=== PATIENT | female | born 1990 | race Caucasian/White ===

== ENCOUNTER → 2020-02-16 | Outpatient (CLI) | payer OTHER, SELFPAY ==
[2020-02-16 09:27] VITALS: BMI 31.0
[2020-02-16 09:56] LABS: Absolute Lymphocyte Count 1.66 X10^3/uL (0.83-4.51); Absolute Neutrophil Count 8.5 X10^3/uL (2.0-7.7); Basophil# 0.03 X10^3/uL; Basophil% 0.3 % (0-1); Eosinophil# 0.13 X10^3/uL; Eosinophils% 1.2 % (0-5); Hematocrit 32.9 % (37-47); Hemoglobin 10.9 g/dL (12.0-15.0); Lymphocyte # 1.66 X10^3/ul (4.0); Lymphocyte % 14.8 % (19-41); Mean Corp Hgb Conc 33.1 g/dL (32-36); Mean Corpuscular Volume 90.6 fL (81-99); Mean Platelet Vol. 9.8 fl (6.2-12.0); Monocyte# 0.78 X10^3/uL; Monocyte% 6.9 % (0-10); NRBC Flagged by Analyzer 0 % (0-5); Neutrophil # 8.51 X10^3/uL (2.7-7.7); Neutrophil % 75.7 % (47-70); Platelet Count 267 K/mm3 (150-450); RBC Distribution Width CV 12.6 % (11.6-14.6); RBC Distribution Width SD 41.2 fl (35.1-43.9); Red Blood Count 3.63 M/mm3 (4.2-5.4); White Blood Count 11.2 K/mm3 (4.4-11.0)
[2020-02-16 11:12] LABS: HIV - WCH Non-Reactive (Nonreactive); Hepatitis B Surface Antigen Non-Reactive (Nonreactive); Hepatitis C Antibody Non-Reactive (Nonreactive); Rubella IgG 0.8 IU/mL
[2020-02-22 01:34] LABS: Rapid Plasmin Reagin (RPR) NONREACTIVE (NONREACTIVE)
== END | disposition home or self-care (01) ==
LOC: PAVLAB 09:35
PROVIDERS: Referring Provider Obstetrics & Gynecology; Visit Provider Obstetrics & Gynecology
DX: Z34.90 Encounter for supervision of normal pregnancy, unspecified, unspecified trimester (principal)
CPT/HCPCS: 36415; 85025; 86592; 86703; 86762; 86803; 86850; 86900; 86901; 87340

== ENCOUNTER → 2020-02-23 | Outpatient (CLI) | payer OTHER, SELFPAY ==
[2020-02-16 09:27] VITALS: BMI 31.0
[2020-02-23 11:39] VITALS: BMI 31.0
--- NOTE | 2020-02-23 12:17 | US_ITS ---
STUDY: SECOND AND THIRD TRIMESTER OBSTETRICAL ULTRASOUND REASON FOR EXAM: Female, 29 years old. Anatomy. 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 LMP: 06/18/2019. TECHNIQUE: Transabdominal TECHNICAL QUALITY: Adequate. PRIOR ULTRASOUND: None. FINDINGS: There is a single intrauterine fetus. The fetus is in a cephalic presentation. There is demonstrated cardiac activity with a heart rate of 1:30 bpm. There is a normal amniotic fluid volume. The largest amniotic fluid pocket measures 3.93 cm. The amniotic fluid index (BLANE) is 12.2 cm. The placenta is fundal in location. There are Grade 2 placental changes. The cervix measures 5 cm in length. The bilateral adnexal regions are normal. BIOMETRY: BPD: 8.64 cm: 34 weeks, 5 days HC: 30.77 cm: 34 weeks, 2 days AC: 31.74 cm: 35 weeks, 4 days FL: 7.01 cm: 35 weeks, 6 days CI: 82.25 FL/BPD: 81.15 FL/HC: 22.78 FL/AC: 22.09 HC/AC: 0.97 age by current US: 34 weeks, 4 days. NIKOS by current US: 04/01/2020. Estimated weight: 2697 grams, +/- 399 grams, 44 %. Age by LMP: 35 weeks, 5 days. NIKOS by LMP: 03/24/2020.. ANATOMY: Gender: Indeterminant Cranium: The lateral ventricles are non-visualized. Normal choroid plexus. Normal cerebellum. The cisterna magna is non-visualized. The face, nose and lips are suboptimally visualized.. Chest: Normal 4-chamber heart. Abdomen/Pelvis: Normal diaphragm. Normal stomach. Normal abdominal wall. Normal cord insertion. Normal 3 vessel cord. Normal kidneys. Normal bladder. Spine: Normal cervical spine. Normal thoracic spine. Normal lumbar spine. Normal sacrum. Extremities: Normal bilateral upper extremities. Normal bilateral lower extremities. US/OB Anatomy Scan IMPRESSION: 1. Live single intrauterine at 34 weeks, 4 days. NIKOS is 04/01/2020. 2. EFW of 2696 g. 3. BLANE of 12.4 cm. 4. Fundal grade 2 placenta. 5. Vertex presentation. 6. Limited evaluation of anatomy as above. No abnormality is noted. Electronically Signed: Jeremias Keith DO at 15:49 EDT Tel [phone], Service support ,
== END | disposition home or self-care (01) ==
LOC: OPUS 12:17
PROVIDERS: Referring Provider Obstetrics & Gynecology; Visit Provider Obstetrics & Gynecology
DX: Z36.89 Encounter for other specified antenatal screening (principal)
CPT/HCPCS: 76805

== ENCOUNTER → 2020-02-29 | Outpatient (CLI) | payer OTHER, SELFPAY ==
[2020-02-29 10:38] VITALS: BMI 34.5
== END | disposition home or self-care (01) ==
LOC: LABSPEC 12:24
PROVIDERS: Visit Provider Obstetrics & Gynecology
DX: Z34.93 Encounter for supervision of normal pregnancy, unspecified, third trimester (principal)
CPT/HCPCS: 87081

== ENCOUNTER 2020-04-05 17:04 | Inpatient (IN) | payer OTHER, SELFPAY ==
[2020-03-28 10:53] VITALS: BMI 35.8
[2020-04-05] VITALS (38 sets, daily range): BP systolic 100–141; BP diastolic 56–78; PULSE 88–135; TEMP 36.6–37.6; O2SAT 96–100; BMI 32.4
[2020-04-05] MEDS: Lactated Ringers 500 ML 999 ML IV (17:00)
[2020-04-05] MEDS: Lactated Ringers 1,000 ML 50 ML IV (17:00)
[2020-04-05 17:31] LABS: Absolute Lymphocyte Count 1.34 X10^3/uL (0.83-4.51); Basophil# 0.04 X10^3/uL; Basophil% 0.2 % (0-1); Eosinophil# 0.01 X10^3/uL; Hematocrit 34.3 % (37-47); Hemoglobin 11.3 g/dL (12.0-15.0); Lymphocyte # 1.34 X10^3/ul (4.0); Lymphocyte % 5.6 % (19-41); Mean Corp Hgb Conc 32.9 g/dL (32-36); Mean Corpuscular Hgb 28.6 pg (27.0-32.0); Mean Corpuscular Volume 86.8 fL (81-99); Mean Platelet Vol. 10.2 fl (6.2-12.0); Monocyte# 1.24 X10^3/uL; Monocyte% 5.2 % (0-10); NRBC Flagged by Analyzer 0 % (0-5); Neutrophil # 20.95 X10^3/uL (2.7-7.7); Neutrophil % 88.1 % (47-70); POSITIVE DIFFERENTIAL YES; Platelet Count 274 K/mm3 (150-450); RBC Distribution Width CV 13.2 % (11.6-14.6); RBC Distribution Width SD 41.5 fl (35.1-43.9); Red Blood Count 3.95 M/mm3 (4.2-5.4); White Blood Count 23.8 K/mm3 (4.4-11.0)
[2020-04-05 17:56] LABS: Differential Indicated SCAN CRITERIA MET
[2020-04-05 18:23] LABS: Differential Comment SCANNED
[2020-04-05] MEDS: fentaNYL-bupivacaine (epidural) 100 ML BAG EPIDURAL (18:44)
[2020-04-05 18:59] LABS: Hepatitis C Antibody Non-Reactive (Nonreactive)
[2020-04-05] MEDS: Lactated Ringers 1,000 ML 200 ML IV (19:25)
--- NOTE | 2020-04-05 19:38 | PCM.HPOB.BLA ---
- Problem List (1) Active labor at term Status: Acute (2) Status: Acute Qualifiers: Comment: late NADYA 34 weeks from Melissa talbot. 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: No Is patient in pain?: No Allergies No Known Allergies Allergy (Verified 03/28/20 10:56) Medications prep PO 02/16/20 [History Confirmed 03/28/20] plexis bioclense PO 02/16/20 [History Confirmed 03/28/20] plexis probiotic PO 02/16/20 [History Confirmed 03/28/20] wild yam PO 02/16/20 [History Confirmed 03/28/20] Last Menstral Period: 06/19/19 Zika: Zika virus screening: Negative : No PFSH PFSH Surgical History H/O elbow surgery (Acute) S/P ACL surgery (Acute) Status post right foot surgery (Acute) Family History Grandfather Heart disease Myocardial infarction Grandmother Bone cancer Mother Breast cancer Social History (Updated 03/28/20 @ 13:[address] Conchita Guillen MD) household members: spouse current occupational status: unemployed history of recent travel: No sexually active: Yes Smoking Status: Never smoker alcohol intake: never substance use type: does not use what type of physical activity do you participate in: aerobics, weight training seatbelt use: always do you feel safe at home: Yes additional social history: - Roc Pregancy History 1 Elective abortions Hx Para 0 Spontaneous abortions Hx # Term Pregnancies Ectopic pregnancies Hx # Pregnancies Multiple births # of living children HPI 41WK OB: Details: NAYAN ISLAS is a 29 year old who presents for routine OB visit. OB Visit NIKOS Calculator Estimated Delivery Date Method Current WG Current Estimate 03/24/20 LMP (Certain) 40w 4d Expected Delivery Route/Plan IOL at 42 weeks if reassuring testing Labor Preferences- CB/BF classes: declined labor support person: roc labor intervention preferences: minimal intervention pain management options preferred: minimal intervention, hydrotherapy, open to pressure points. cut cord/dad catch: yes : yes PP control planned: declines discussed possible routes of delivery and associated risks: discussed possible delivery modalities and possible indications for each including R/B/A of , VAVD, and CS. questions answered. special requests: plan scanned. Desires hep lock in labor. Desires delayed cord clamping until delivery of the placenta. Specific Issue/Plans flu vaccine: decline tdap vaccine: Declined rhogam: na LARC form signed: 03/08 movement and labor precautions reviewed. Problem list reviewed and updated with the most current plan of care details and appropriate orders placed. Relevant counseling for the gestational age provided. Continue routine care and follow up unless otherwise noted in visit notes/problem list details Initial Weight: 160 lb Date EGA Weight BP Urine Prot Glucose FHR FuHt Pres Dilation Effaced St Visit Note 02/16/20 34w 5d 210 lb 2 oz (+50 lb 2 oz) 136/84 145 35 SM- NADYA from Melissa Talbot for elevated blood pressures. SM- NADYA from Melissa Talbot for elevated blood pressures. She has had to them intermittent headaches but they do resolve with Tylenol. Patient was seen yesterday by primary care and had a normal lab evaluation and negative urine for proteinuria. Reviewed preeclampsia precautions and gave handout, encouraged home blood pressure monitoring and follow-up weekly until delivery. 02/23/20 35w 5d 215 lb 6 oz (+55 lb 6 oz) 132/74 Negative Negative 145 36 SM- reviewed bp and nl, no daugherty bv. she is wanting to deliver here in the hospital. no vb lof good fm no regular ctx 02/29/20 36w 4d 214 lb (+54 lb) 122/84 Negative Negative 140 36 SM- no vb lof good fm no regular ctx gbs collected nl bps 03/08/20 37w 5d 215 lb 4 oz (+55 lb 4 oz) 124/80 Negative Negative 135 37 Cephalic GP - no LOF, VB, DFM, reg ctx. Reviewed plan. Discussed routes of delivery. 03/15/20 38w 5d 217 lb (+57 lb) 130/78 Negative Negative 155 38 Cephalic GP - no LOF, VB, DFM, ctx. Declines exam. 03/21/20 39w 4d 219 lb (+59 lb) 130/82 Negative Negative 130 39 Cephalic SM- no vb lof good fm no regualr ctx 03/28/20 40w 4d 222 lb (+62 lb) 126/82 Negative Negative 140 37 38 Cephalic 1 SM- no vb lof good fm no regular ctx discussed testing and plan IOL at 42 weeks if no spontaneous labor SM- no vb lof good fm no regular ctx discussed testing and plan IOL at 42 weeks if no spontaneous labor. bedside eliseo WNL, growth us ordered wednesday Diagnostics Diagnostics Diagnostics Blood Type A POSITIVE 02/16/20 Antibody Screen NEGATIVE 02/16/20 HIV 1&2 Antibody Non-Reactive (Nonreactive) 02/16/20 Rubella IgG Antibody 0.8 IU/mL 02/16/20 Hgb 10.9 g/dL (12.0-15.0) L 02/16/20 Hct 32.9 % (37-47) L 02/16/20 RPR NONREACTIVE (NONREACTIVE) 02/16/20 Details: HIV: Urine Culture: Sequential Screen: NIPT Screen: ROS Const Reports system reviewed and no additional complaints, except as docu Card Reports system reviewed and no additional complaints, except as docu Resp Reports system reviewed and no additional complaints, except as docu GI Reports system reviewed and no additional complaints, except as docu, Reports nausea Reports system reviewed and no additional complaints, except as docu Musc Reports system reviewed and no additional complaints, except as docu Exam Const General: cooperative, healthy appearing, comfortable, anxious [facility] Head: normal to inspection Nose: external nose normal Face and sinus: normal facial exam Neck Neck: normal visual inspection, full ROM, no lymphadenopathy Thyroid: thyroid normal Chest Chest palpation & inspection: normal inspection of the chest Resp Effort & Inspection: normal respiratory effort GI Inspection: normal to inspection Palpation: soft, other (gravid uterus) Other: infant vertex and appropriate size for gestational age Other: Cervical Exam: Extrem General: pedal edema Results POC Urinalysis 2 Dip (Clinic) Office Urine Glucose Negative Last Edit by Montse Young on 03/28/20 11:00 Office Urine Protein Negative Last Edit by Montse Young on 03/28/20 11:00 Assessment & Plan Problems 1. Rubella non-immune status, antepartum O99.891; Z28.3 2. Supervision of normal in third trimester Z34.93 3. Z34.90 Patient presents IAL, plan expectant management for , pitocin/AROM PRN if needed. Pain management: Desires natural, but open to epidural. GBS negative. Management of any complications: none I have reviewed the [facility] and made any clinically relevant updates. UPDATE- I have seen the patient and performed any clinically relevant updates to the history and physical exam. Corry Jackson MD
[2020-04-05 19:46] LABS: Chlamydia Trachomatis by PCR Negative (Negative); Neisserai gonorrhoeae by PCR Negative (Negative); Probe Check PASS; Sample Adequacy Control PASS; Specimen Processing Control PASS
[2020-04-05] MEDS: Oxytocin 30 units/NS 500 ml 30 UNITS/500 ML IV.SOLN 334 UNITS IV (22:01)
--- NOTE | 2020-04-05 22:15 | PCM.OPRPT ---
Problem List (1) Active labor at term Status: Acute (2) Status: Acute Qualifiers: Comment: late NADYA 34 weeks from Melissa ruiz. anatomy US and NOB labs ordered US 02/22 (3) Rubella non-immune status, antepartum Status: Acute Comment: avoidance, encourage MMR (4) Supervision of normal in third trimester Status: Acute Comment: PRR NIKOS 03/24/20 surprise Tru Vaginal Delivery Maternal Presentation: Active Labor 29-year-old G1, P0 at 41 weeks gestation admitted out of triage in active labor. Patient made cervical change to complete dilation without augmentation. Amniotic Membrane Rupture Type: Spontaneous at home Rupture of Membrane time: 1100 Amniotic Fluid Description: Clear Final NIKOS: 03/24/20 Gestational age: 41 Weeks and 5 Days Date of Procedure: 04/05/20 Pre-Operative Diagnosis: Postterm , active labor Post-Operative Diagnosis: Same Surgery/ Procedure Performed: Spontaneous Vaginal Delivery Type of Anesthesia: Epidural Description of Procedure: Patient began pushing and delivered the head in the NHI presentation. The head was delivered atraumatically and no nuchal cord was noted. The anterior and posterior shoulders delivered without complication followed by the rest of the and the infant was placed on the maternal abdomen. Delayed cord clamping was employed for approximately 60 seconds. Cord was clamped and cut and gentle traction was applied to the cord and the placenta delivered spontaneously immediately following it was noted to be intact with three-vessel cord. The perineum and vagina were inspected and a first-degree laceration was noted and repaired in a running fashion using 3-0 Vicryl rapide suture. EBL was 200 cc. Patient and tolerated delivery well. Presentation: Vertex, NHI Placental Delivery Description: Spontaneous Placenta Disposition: [facility] Cord Vessel Description: 3 Vessels Cord Entanglement: None Estimated Blood Loss: 200 cc Infant A gender: Female (1 minute): 8 (5 minute): 9 Episiotomy Description: None Laceration: Midline, Perineal Extension/lac, 1st degree Medications given after delivery: IV Pitocin Complications: None Multi Select Codes - Urinary/Genital Urinary/Genital CPT Codes: 45563 Vaginal Delivery [facility]
[2020-04-06] VITALS (13 sets, daily range): BP systolic 110–143; BP diastolic 55–70; PULSE 81–105; RESP 14–20; TEMP 36.7–37.9; O2SAT 97–98
[2020-04-06] MEDS: 0.9% Saline Lock 10 ML Syringe IV (00:55)
--- NOTE | 2020-04-06 04:43 | NURSING ---
pt refused MMR administration
--- NOTE | 2020-04-06 09:58 | PCM.PN.OB ---
Patient Problems: Active and Suspected Problems (Last Reviewed 03/28/20 @ 10:56 by Montse Young) Active labor at term (Acute) (Acute) late NADYA 34 weeks from Melissa ruiz. anatomy US and NOB labs ordered US 02/22 Supervision of normal in third trimester (Acute) PRR NIKOS 03/24/20 surprise Tru Rubella non-immune status, antepartum (Acute) avoidance, encourage MMR Subjective: Patient doing well without complaints. Tolerating PO. Ambulating and voiding without difficulty. Breast feeding well. Denies chest pain, shortness of breath, calf pain/swelling, fevers, chills, lightheadedness. - Physical Exam Vitals/I&O's: Vital Signs Temp Pulse Resp BP Pulse Ox 100.2 F H 97 16 115/55 L 98 04/06/20 08:41 04/06/20 08:41 04/06/20 08:41 04/06/20 08:41 04/06/20 08:41 Oxygen Delivery Method Room Air Weight: 219 lb 9.286 oz Body Mass Index (BMI) 32.4 Intake and Output for Last 24 Hours 04/04/20 04/05/20 04/06/20 23:59 23:59 23:59 Intake Total 2183.67 / 2183.67 333 / 333 Output Total 1150 / 1150 Balance 2183.67 / 2183.67 -817 / -817 General: Alert, Oriented x3, Cooperative, No apparent distress, Well developed, Well nourished HEENT: Atraumatic, PERRLA, EOMI, Normocephalic Lungs: Normal air movement Cardiovascular: Regular rate Abdomen: Soft, Non Tender, Non-Distended, - - fundus firm Extremities: No edema, No Calf Tenderness Neurological: Cranial nerves II-XII grossly intact, Neuro grossly intact Psych/Mental Status: Normal Affect, Appropriate Microbiology Past 72 Hours 04/05/20 17:18 Mucosa - Nose SARS-CoV-2 Antigen (Rapid) - Final Laboratory Results 04/05/20 17:00: WBC 23.8 H, RBC 3.95 L, Hgb 11.3 L, Hct 34.3 L, MCV 86.8, MCH 28.6, MCHC 32.9, RDW Std Deviation 41.5, RDW Coeff of Mimi 13.2, Plt Count 274, MPV 10.2, Immature Gran % (Auto) 0.900, Neut % (Auto) 88.1 H, Lymph % (Auto) 5.6 L, Mclean % (Auto) 5.2, Eos % (Auto) 0.0, Baso % (Auto) 0.2, Absolute Neuts (auto) 21.0 H, Absolute Lymphs (auto) 1.34, Nucleated RBC % 0, Differential Comment SCANNED 04/05/20 17:00: Blood Type A POSITIVE, Antibody Screen NEGATIVE 04/05/20 17:00: Hepatitis C Antibody Non-Reactive 04/05/20 17:40: Chlam trachomat DNA PCR Negative, N.gonorrhoeae DNA (PCR) Negative Current Medications Acetaminophen (Acetaminophen 500 Mg Tablet) 1,000 mg PO Q8H PRN PRN PRN Reason: Pain Score 1-3 Bisacodyl (Bisacodyl 10 Mg Suppository) 10 mg RECTAL UD PRN PRN Reason: If no BM Dibucaine (Dibucaine 30 Gm Tube) 1 applic TOPICAL TID PRN PRN; Protocol PRN Reason: Discomfort Hydrocortisone (Hydrocortisone 2.5% Crm) 1 applic TOPICAL TID PRN PRN; Protocol PRN Reason: Discomfort Ibuprofen (Ibuprofen 600 Mg Tablet) 600 mg PO Q6H PRN PRN PRN Reason: Pain Score 1-3 Methylergonovine Maleate (Methylergonovine 0.2 Mg/Ml Ampul) 0.2 mg IM X1 PRN PRN Reason: Excess bleeding/uterine atony Ondansetron HCl (Ondansetron 4 Mg/2 Ml Vial) 4 mg IV Q4H PRN PRN PRN Reason: Nausea Oxycodone HCl (Oxycodone 5 Mg Tablet) 5 - 10 mg PO Q4H PRN PRN PRN Reason: Pain Score 4-10 Senna/Docusate Sodium (Senna/Docusate Sodium 1 Tablet) 1 - 2 tablet PO DAILY PRN PRN PRN Reason: Constipation Simethicone (Simethicone 80 Mg Tablet) 80 mg PO PCHS PRN PRN Reason: Indigestion/Stomach pain Sodium Chloride (0.9% Saline Lock 10 Ml Syringe) 5 - 15 ml IV UD PRN PRN Reason: SALINE FLUSH Last Admin: 11/21/20 00:55 Dose: 10 ml Documented by: Medical Necessity - Tobacco Use Smoking Status: Never smoker Assessment/Plan All Active Problems (Last Reviewed 03/28/20 @ 10:56 by Montse Young) Active labor at term (Acute) (Acute) Supervision of normal in third trimester (Acute) Rubella non-immune status, antepartum (Acute) Hypertension affecting (Resolved) Transient hypertension of (Resolved) s/p PPD # 1 1. routine post delivery care 2. breast feeding- support given 3. rh positive 4. rubella non-immune
--- NOTE | 2020-04-06 09:59 | DCINST_ITS ---
Discharge Diet: No Restrictions Discharge Activity: Return to Normal Activity, May not drive while taking narcotic pain medications., May Shower May resume sexual activity in: 4-6 weeks Additional Activity Instructions:: Nothing in the vagina for 4-6 weeks. You may return to work/school in 6 weeks. Call your doctor if your incision/area has: Continuous Slow Oozing, Sudden Increased Bleeding, Increased Pain/ Swelling, Increased Redness, Foul Smelling Discharge Additional Instructions: If you experience any of the following, contact your healthcare provider. * Bleeding that soaks a pad every hour for 2 hours * Fever 100.4 or higher * Unrelieved incision or abdominal pain * Swelling, redness, discharge or bleeding from your incision or episiotomy site * Your incision begins to separate * Problems urinating (including inability to urinate or burning while urinating). * Visual changes * Severe headache * Flu-like symptoms * Pain or redness in one of both of your breasts * Pain, warmth, tenderness or swelling in your legs, especially the calf area * Frequent nausea and vomiting * Symptoms of depression or anxiety If you experience any of the following, call 911 or go to the nearest Emergency Room. * Chest pain * Problems breathing * Seizure activity * Partial or complete paralysis of a body part, slurred speech, weakness or drooping of the face, or a sudden inability to walk or hold your balance Allergies/Adverse Reactions: Allergies No Known Allergies Allergy (Verified 03/28/20 10:56) Medications to take at Discharge prep 2 capsule PO DAILY 02/16/20 plexis bioclense 2 capsule PO DAILY 02/16/20 plexis probiotic 2 capsule PO DAILY 02/16/20 wild yam 1 capsule PO DAILY 02/16/20 When: Call to make an appointment with your doctor in 6 weeks. If you had elevated Blood Pressure or 4th degree laceration you will need to be seen in 2 weeks. Primary Care Physician: Care Physician,No Primary [Primary Care Provider] - Test Results: Test results from this visit will be discussed in further detail at your follow-up appointment, if applicable.
--- NOTE | 2020-04-10 17:32 | NURSING ---
Doing well at follow up phone call. Baby nursing well Really liked
== END 2020-04-06 23:10 | disposition home or self-care (01) | DRG 807 ==
LOC: WPOUT 17:04 → WP 17:05
PROVIDERS: Admitting Provider Obstetrics & Gynecology; Referring Provider Obstetrics & Gynecology; Visit Provider Obstetrics & Gynecology
DX: O48.0 Post-term pregnancy (principal); Z37.0 Single live birth; O42.92 Full-term premature rupture of membranes, unspecified as to length of time between rupture and onset of labor; Z3A.41 41 weeks gestation of pregnancy; O70.0 First degree perineal laceration during delivery; Z78.9 Other specified health status
CPT/HCPCS: 59025; 59050; 85025; 86803; 86850; 86900; 86901; 87426; 87491; 87591; 99218; J7120; A4216; G0378

== ENCOUNTER → 2022-03-05 | Outpatient (CLI) | payer SELFPAY ==
[2022-03-05 13:11] LABS: Amphetamine Urine VISTA NEGATIVE (<1000 ng/mL); Barbiturate Urine VISTA NEGATIVE (< 200 ng/mL); Benzodiazepine Urine VISTA NEGATIVE (< 200 ng/mL); Cocaine Urine VISTA NEGATIVE (< 300 ng/mL); Ecstacy Urine VISTA NEGATIVE (< 500 ng/mL); Methadone Urine VISTA NEGATIVE (< 300 ng/mL); PCP Urine VISTA NEGATIVE (< 25 ng/mL); THC Urine VISTA NEGATIVE (< 50 ng/mL); Vista UDS pH Range 6
[2022-03-07 13:07] LABS: Chlamydia By Nucleic Acid AMP Negative (Negative)
[2022-03-08 15:27] LABS: Gonococcus By Nucleic Acid AMP Negative (Negative)
[2022-03-11 18:28] LABS: HPV Reflexed? NOT INDICATED
== END | disposition home or self-care (01) ==
LOC: LABSPEC 12:30
PROVIDERS: Referring Provider Obstetrics & Gynecology; Visit Provider Obstetrics & Gynecology
DX: Z34.80 Encounter for supervision of other normal pregnancy, unspecified trimester (principal)
CPT/HCPCS: 80307; 87086; 87088; 87491; 87591; 88175; G0145

== ENCOUNTER → 2022-04-01 | Outpatient (CLI) | payer SELFPAY ==
[2022-04-01 11:19] LABS: Absolute Lymphocyte Count 1.85 X10^3/uL (0.83-4.51); Absolute Neutrophil Count 7.6 X10^3/uL (2.0-7.7); Basophil# 0.02 X10^3/uL; Basophil% 0.2 % (0-1); Eosinophil# 0.13 X10^3/uL; Eosinophils% 1.3 % (0-5); Hematocrit 37.4 % (37-47); Hemoglobin 12.4 g/dL (12.0-15.0); Lymphocyte # 1.85 X10^3/ul (0.83-4.51); Lymphocyte % 18.2 % (19-41); Mean Corp Hgb Conc 33.2 g/dL (32-36); Mean Corpuscular Hgb 28.6 pg (27.0-32.0); Mean Corpuscular Volume 86.4 fL (81-99); Mean Platelet Vol. 9.6 fl (6.2-12.0); Monocyte# 0.58 X10^3/uL; Monocyte% 5.7 % (0-10); NRBC Flagged by Analyzer 0 % (0-5); Neutrophil # 7.56 X10^3/uL (2.7-7.7); Neutrophil % 74.2 % (47-70); Platelet Count 236 K/mm3 (150-450); RBC Distribution Width SD 40.9 fl (35.1-43.9); Red Blood Count 4.33 M/mm3 (4.2-5.4); White Blood Count 10.2 K/mm3 (4.4-11.0)
[2022-04-01 12:30] LABS: HIV - WCH Non-Reactive (Nonreactive); Hepatitis B Surface Antigen Non-Reactive (Nonreactive); Hepatitis C Antibody Non-Reactive (Nonreactive); Rubella IgG Non-Reactive (Nonreactive); Syphilis Antibodies Non-reactive
== END | disposition home or self-care (01) ==
PROVIDERS: Obstetrics & Gynecology; Referring Provider Registered Nurse; Visit Provider Registered Nurse
DX: Z34.80 Encounter for supervision of other normal pregnancy, unspecified trimester (principal)
CPT/HCPCS: 36415; 85025; 86703; 86762; 86780; 86803; 86850; 86900; 86901; 87340

== ENCOUNTER → 2022-04-30 | Outpatient (CLI) | payer SELFPAY ==
--- NOTE | 2022-04-30 12:29 | US_ITS ---
STUDY: SECOND AND THIRD TRIMESTER OBSTETRICAL ULTRASOUND REASON FOR EXAM: Female, 31 years old Anatomy scan -- 20 Week TECHNIQUE: Transabdominal and Transvaginal PRIOR ULTRASOUND: 02/23/2020 FINDINGS: There is a single intrauterine fetus. The fetus is in an transverse lie with the head on the maternal left side. There is demonstrated cardiac activity with a heart rate of 143 bpm. There is a normal amniotic fluid volume. The largest amniotic fluid pocket measures 5.4 cm. The placenta is anterior and low lying but not previa in location. There are Grade 0 placental changes. The cervix measures 4.4 cm in length. The bilateral adnexal regions are normal. BPD: 4.3 cm = 19 weeks, 1 day(s) HC: 15.9 cm = 18 weeks, 5 day(s) AC: 13.5 cm = 19 weeks, 0 day(s) FL: 2.9cm = 18 weeks, 5 day(s) EGA by ultrasound: 18 weeks 5 day(s) NIKOS by ultrasound: 09/26/2022 Estimated weight: 264 grams Weight percentile: 20% ANATOMY: Gender: Female Cranium: Normal lateral ventricles. Normal choroid plexus. Normal cerebellum. Normal cisterna magna. Normal face, nose and lips. Chest: Normal 4-chamber heart. Abdomen/Pelvis: Normal diaphragm. Normal stomach. Normal abdominal wall. Normal cord insertion. Normal 3 vessel cord. Normal kidneys. Normal bladder. Spine: Normal cervical spine. Normal thoracic spine. Normal lumbar spine. Normal sacrum. Extremities: Normal bilateral upper extremities. Normal bilateral lower extremities. US/OB Anatomy Scan IMPRESSION: Living intrauterine with estimated gestational age of 18 weeks and 5 days. No obvious anomalies. EFW is 264 g which is in the 20th percentile. Electronically Signed: Lance Hameed MD at 19:10 EST ,
== END | disposition home or self-care (01) ==
PROVIDERS: Visit Provider Registered Nurse
DX: Z34.80 Encounter for supervision of other normal pregnancy, unspecified trimester (principal)
CPT/HCPCS: 76805; 76817

== ENCOUNTER → 2022-06-18 | Outpatient (CLI) | payer SELFPAY ==
[2022-06-18 14:15] LABS: Glucose Challenge Gest 1H 50g 91 mg/dL (70-140)
== END | disposition home or self-care (01) ==
LOC: LAB 12:49
PROVIDERS: Visit Provider Obstetrics & Gynecology
DX: Z13.1 Encounter for screening for diabetes mellitus (principal)
CPT/HCPCS: 36415; 82950

== ENCOUNTER → 2022-08-11 | Outpatient (CLI) | payer SELFPAY ==
[2022-08-11 15:07] LABS: Absolute Lymphocyte Count 1.88 X10^3/uL (0.83-4.51); Basophil# 0.02 X10^3/uL; Basophil% 0.2 % (0-1); Eosinophil# 0.21 X10^3/uL; Eosinophils% 1.6 % (0-5); Hematocrit 32.5 % (37-47); Hemoglobin 10.6 g/dL (12.0-15.0); Lymphocyte # 1.88 X10^3/ul (0.83-4.51); Lymphocyte % 14.2 % (19-41); Mean Corp Hgb Conc 32.6 g/dL (32-36); Mean Corpuscular Hgb 28.6 pg (27.0-32.0); Mean Corpuscular Volume 87.6 fL (81-99); Mean Platelet Vol. 9.5 fl (6.2-12.0); Monocyte# 0.83 X10^3/uL; Monocyte% 6.3 % (0-10); NRBC Flagged by Analyzer 0 % (0-5); Neutrophil # 10.01 X10^3/uL (2.7-7.7); Neutrophil % 75.8 % (47-70); Platelet Count 220 K/mm3 (150-450); RBC Distribution Width CV 13.2 % (11.6-14.6); RBC Distribution Width SD 41.7 fl (35.1-43.9); Red Blood Count 3.71 M/mm3 (4.2-5.4); White Blood Count 13.2 K/mm3 (4.4-11.0)
[2022-08-11 16:03] LABS: HIV - WCH Non-Reactive (Nonreactive); Syphilis Antibodies Non-reactive
== END | disposition home or self-care (01) ==
PROVIDERS: Registered Nurse; Referring Provider Obstetrics & Gynecology; Visit Provider Obstetrics & Gynecology
DX: O09.899 Supervision of other high risk pregnancies, unspecified trimester (principal); Z28.39 Other underimmunization status
CPT/HCPCS: 36415; 85025; 86703; 86780

== ENCOUNTER → 2022-08-28 | Outpatient (CLI) | payer SELFPAY | END | disposition home or self-care (01) | LOC: LAB 16:48 | PROVIDERS: Referring Provider Advanced Practice Midwife; Visit Provider Advanced Practice Midwife | DX: Z34.80 Encounter for supervision of other normal pregnancy, unspecified trimester (principal); Z3A.36 36 weeks gestation of pregnancy | CPT/HCPCS: 87077; 87081; 87186 ==

== ENCOUNTER 2022-10-01 07:50 | Inpatient (IN) | payer SELFPAY ==
[2022-10-01] VITALS (79 sets, daily range): BP systolic 77–157; BP diastolic 41–81; PULSE 86–111; RESP 18; TEMP 36.3–36.8; O2SAT 87–100; BMI 36.6
[2022-10-01 07:21] LABS: ROM Internal Control Test YES-OK TO RESULT pt. (Internal QC)
[2022-10-01 07:22] LABS: ROM Patient Test Negative (Negative)
[2022-10-01] MEDS: Lactated Ringers 1,000 ML 200 ML IV ×2 (09:15→13:30)
[2022-10-01 09:31] LABS: Absolute Lymphocyte Count 1.27 X10^3/uL (0.83-4.51); Absolute Neutrophil Count 13.8 X10^3/uL (2.0-7.7); Basophil# 0.03 X10^3/uL; Basophil% 0.2 % (0-1); Eosinophil# 0.06 X10^3/uL; Eosinophils% 0.4 % (0-5); Hematocrit 33.1 % (37-47); Hemoglobin 10.8 g/dL (12.0-15.0); Lymphocyte # 1.27 X10^3/ul (0.83-4.51); Lymphocyte % 7.9 % (19-41); Mean Corp Hgb Conc 32.6 g/dL (32-36); Mean Corpuscular Volume 85.8 fL (81-99); Mean Platelet Vol. 10.2 fl (6.2-12.0); Monocyte# 0.81 X10^3/uL; NRBC Flagged by Analyzer 0 % (0-5); Neutrophil # 13.83 X10^3/uL (2.7-7.7); Neutrophil % 85.7 % (47-70); Platelet Count 239 K/mm3 (150-450); RBC Distribution Width CV 14.7 % (11.6-14.6); RBC Distribution Width SD 45.4 fl (35.1-43.9); Red Blood Count 3.86 M/mm3 (4.2-5.4); White Blood Count 16.1 K/mm3 (4.4-11.0)
[2022-10-01] MEDS: LACTATED RINGERS 500 ML 999 ML IV ×4 (09:51→17:35)
[2022-10-01 10:12] LABS: Syphilis Antibodies Non-reactive
[2022-10-01] MEDS: fentaNYL-bupivacaine (epidural) 100 ML BAG EPIDURAL (10:47)
[2022-10-01] MEDS: Penicillin G 3,000,000 Units 50 ML 100 UNITS IV ×2 (13:11→17:52)
--- NOTE | 2022-10-01 13:52 | HP.PCM.OB_ITS ---
HPI - General General Date of Admission: 10/01/22 HPI Narrative NAYAN ISLAS, is a 31 F who presents IAL made change to 4 cm regular painful ctx. Maternal Data Information NIKOS Calculator Estimated Delivery Date Method Current WG Current Estimate 09/21/22 Ultrasound #1 41w 3d Other Estimates 09/29/22 LMP (Certain) 40w 2d PFSH PFS Medical History Rubella non-immune status, antepartum Home Medications plexis bioclense 2 capsule PO DAILY 02/16/20 [History Last Taken 09/30/22 09:00] plexis probiotic 2 capsule PO DAILY 02/16/20 [History Last Taken 04/04/20 09:00] Allergy/AdvReac Type Severity Reaction Status Date / Time No Known Allergies Allergy Verified 10/01/22 06:50 Family History Grandfather Heart disease Myocardial infarction Grandmother Bone cancer Mother Breast cancer Surgical History H/O elbow surgery S/P ACL surgery Status post right foot surgery Social History household members: family number of children: 1 current occupational status: unemployed current occupation: [employer] pets and animals: No history of recent travel: No sexually active: Yes Smoking Status: Never smoker second hand exposure: No alcohol intake: never substance use type: does not use what type of physical activity do you participate in: aerobics and weight training seatbelt use: always do you feel safe at home: Yes additional social history: - Tru ([employer]) History 2 Elective abortions Hx Para 1 Spontaneous abortions Hx # Term Pregnancies Ectopic pregnancies Hx # Pregnancies Multiple births # of living children 1 Past Pregnancies Del. Date Name GA/Weeks Outcome Route Bth Weight Gen Labor Lgth Anesthesia Del Locatn Provider FOB 04/05/20 Sabi 41 live - full term Female epidu ral [facility] GP Delivery Date: 04/05/20 Last Updated by: Montse Young 1st degree laceration Visit Details Expected Delivery Route/Plan Labor Preferences- CB/BF classes: Denies labor support person: Tru labor intervention preferences: tub labor pain management options preferred: wants to go unmedicated, epidural if needed cut cord/dad catch: Tru would like to catch : yes PP control planned: NFP, condoms discussed possible routes of delivery and associated risks: [] special requests: [] Plans Covid status: declined Flu vaccine: declined Tdap vaccine: declines Rhogam: [] LARC form signed: Done Problem list reviewed and updated with the most current plan of care details and appropriate orders placed. Relevant counseling for the gestational age provided. Continue routine care and follow up unless otherwise noted in visit notes/problem list details OB Flowsheet Initial Weight: Not Recorded Date -?-?-?-?-?-?-?-?-?-?-?-?- EGA Weight BP Urine Prot -?-?-?-?-?-?-?-?-?-?-?-?- Glucose FHR FuHt Pres Dilation -?-?-?-?-?-?-?-?-?-?-?-?- Effaced St Visit Note 03/05/22 -?-?-?-?-?-?-?-?-?-?-?-?- 11w 3d 191 lb 2 oz 118/71 -?-?-?-?-?-?-?-?-?-?-?-?- 150 -?-?-?-?-?-?-?-?-?-?-?-?- JV- new nikos esta blished. CRL off by 1 week. pt was delivered by GP last pregna ncy but was a transfer from [facility] for non-progression in labor at 36 weeks. 04/01/22 -?-?-?-?-?-?-?-?-?-?-?-?- 15w 2d 199 lb 6 oz 124/79 Nega tive -?-?-?-?-?-?-?-?--?-?-?-?- Negative 142 -?-?-?-?-?-?-?-?-?-?-?-?- LC- no vb/crampi ng. getting nob labs today. anatomy to be scheduled. 04/24/22 -?-?-?-?-?-?-?-?-?-?-?--?- 18w 4d 204 lb 6 oz 121/74 Nega tive -?-?-?-?-?-?-?-?-?-?-?-?- Negative 155 -?-?-?-?-?-?-?-?-?-?-?-?- JV- pt presents with rash that is raised and itchy. it started out as one large welt on her torso and spread. Her had the same thing a week ago. THis looks like classic pityriasis rosea. I have informed her to take anti histamines as needed but that it will likely resolve on it's own. Studies show no or delivery implications. pt reassured. 05/22/22 -?-?-?-?-?-?-?-?-?-?-?-?- 22w 4d 209 lb 112/74 Negative -?-?-?-?-?-?-?-?-?-?-?-?- Negative 145 -?-?-?-?-?-?-?-?-?-?-?-?- SM- no vb crampi ng 06/18/22 -?-?-?-?-?-?-?-?-?-?-?-?- 26w 3d 221 lb 119/75 Negative -?-?-?-?-?-?-?-?-?-?-?-?- Negative 146 26 -?-?-?-?-?-?-?-?-?-?-?-?- JV- GCT done touriel ay. no complaints. results pending. 07/27/22 -?-?-?-?-?-?-?-?-?-?-?-?- 32w 0d 226 lb 4 oz 114/74 Nega tive -?-?-?-?-?-?-?-?-?-?-?-?- Negative 147 32 -?-?-?-?--?-?-?-?-?-?-?-?- LC- cbc and [place] nd hiv/rpr ordered today. glucose 91. ocular migraines, recommended seeing a neurologist- declines. 08/11/22 -?-?-?-?-?-?-?-?-?-?-?-?- 34w 1d 232 lb 2 oz 117/79 Nega tive -?-?-?-?-?-?-?-?-?-?-?-?- Negative 135 34 -?-?-?-?-?-?-?-?-?-?-?-?- SM- no vb lof go od fm no regular ctx 08/28/22 -?-?-?-?-?-?-?-?-?-?-?-?- 36w 4d 238 lb 121/76 -?-?-?-?-?-?-?-?-?-?-?-?- 130 36 Cephalic -?-?-?-?-?-?-?-?-?-?-?-?- KW- +fm. no lof/ vb. some ctx noted. declines VE. GBS done today. discussed meds 09/04/22 -?-?-?-?-?-?-?-?-?-?-?-?- 37w 4d 240 lb 4 oz 116/76 Nega tive -?-?-?-?-?--?-?-?-?-?-?-?- Negative 140 37 Cephalic -?-?-?-?-?-?-?-?-?-?-?-?- KW-+fm. No vb/lo f. some contractions noted. declines VE today. 09/11/22 -?-?--?-?-?-?-?-?-?-?-?-?- 38w 4d 241 lb 8 oz 118/77 Nega tive -?-?-?-?-?-?-?-?-?-?-?-?- Negative 138 38 Cephalic -?-?-?-?-?-?-?-?-?-?-?-?- JV- vtx on us. n o complaints. declines vaginal exam. 09/18/22 -?-?-?-?-?-?-?-?-?-?-?-?- 39w 4d 244 lb 130/70 Negative -?-?-?-?-?-?-?-?-?-?-?-?- Negative 125 38 Cephalic 2 .5 -?-?-?-?-?-?-?-?-?-?-?-?- 50 -3 KW-+FM no lof/vb/ctx. labor precautions. 09/25/22 -?-?-?-?-?-?-?-?-?-?-?-?- 40w 4d 149 lb 4 oz 249 lb 4 oz 130/86 Negative -?-?-?-?-?-?-?-?-?-?-?-?- Negative 140 39.5 Cephalic 2 -?-?-?-?-?-?-?-?-?-?-?-?- 50 -3 LC- no lof /vb. no consistent ctx. good fm. membranes swept. LC- no lof/vb. no consistent ctx. good fm. membranes swept.reviewed r/b of delivery before 41 weeks. desires to continue past up until 42 weeks. will schedule NST/BPP on 41 weeks and at 41+4 LC- no lof/vb. no consistent ctx. good fm. membranes swept.reviewed r/b of delivery before 41 weeks. desires to continue past up until 42 weeks. will schedule NST/BLANE on 41 weeks and at 41+4 10/01/22 -?-?-?-?-?-?-?-?-?-?-?-?- 41w 3d 247 lb 13.836 oz 129 /78 123/71 130/81 131/79 124/58 131/68 125/72 130/63 131/72 119/68 119/68 121/66 123/68 125/63 108/67 133/66 125/58 123/67 77/41 83/51 103/61 109/61 109/62 128/62 127/58 116/59 121/66 116/66 89/50 104/59 102/61 104/60 105/60 105/62 111/57 111/55 115/59 118/60 124/66 149/75 130/71 124/67 132/73 128/72 121/77 157/70 111/56 120/69 125/74 122/71 126/69 118/69 127/66 113/59 129/62 129/63 127/73 128/69 119/65 116/60 -?-?-?-?-?-?-?-?-?-?-?-?- -?-?-?-?-?-?-?-?-?-?-?-?- NST FHR Rate Baby A Baseline: 140 Variability:: Moderate Accelerations:: 15 x 15 Decelerations:: None NST Reactive:: Yes FHR Category:: Category I Uterine Activity:: q3-5 ROS Constitutional Constitutional: Reports systems reviewed and no addt'l complaints, except as documented ENT HEENT: Reports systems reviewed and no addt'l complaints, except as documented Cardiovascular Cardiovascular: Reports systems reviewed and no addt'l complaints, except as documented Respiratory/Chest Respiratory/Chest: Reports systems reviewed and no addt'l complaints, except as documented Gastrointestinal Gastrointestinal: Reports systems reviewed and no addt'l complaints, except as documented and nausea; Denies abdominal pain Genitourinary Genitourinary: Reports systems reviewed and no addt'l complaints, except as documented, contractions Details: present and frequency (regular ) and movement Details: present Musculoskeletal Musculoskeletal: Reports systems reviewed and no addt'l complaints, except as documented Integumentary Integumentary: Reports as per HPI Neurologic Neurologic: Reports systems reviewed and no addt'l complaints, except as documented Endocrine Endocrinology: Reports systems reviewed and no addt'l complaints, except as documented Vital Signs Vital Signs Vital Signs: 10/01/22 06:02 10/01/22 06:02 10/01/22 06:02 Temperature 98.1 F Pulse Rate 100 Blood Pressure 129/78 H BP Systolic 129 BP Diastolic 78 Pulse Ox 10/01/22 09:53 10/01/22 09:54 10/01/22 09:54
--- NOTE | 2022-10-01 13:52 | PCM.HP.OB ---
HPI - General General Date of Admission: 10/01/22 HPI Narrative NAYAN ISLAS, is a 31 F who presents IAL made change to 4 cm regular painful ctx. Maternal Data Information NIKOS Calculator Estimated Delivery Date Method Current WG Current Estimate 09/21/22 Ultrasound #1 41w 3d Other Estimates 09/29/22 LMP (Certain) 40w 2d PFSH PFS Medical History Rubella non-immune status, antepartum Home Medications plexis bioclense 2 capsule PO DAILY 02/16/20 [History Last Taken 09/30/22 09:00] plexis probiotic 2 capsule PO DAILY 02/16/20 [History Last Taken 04/04/20 09:00] Allergy/AdvReac Type Severity Reaction Status Date / Time No Known Allergies Allergy Verified 10/01/22 06:50 Family History Grandfather Heart disease Myocardial infarction Grandmother Bone cancer Mother Breast cancer Surgical History H/O elbow surgery S/P ACL surgery Status post right foot surgery Social History household members: family number of children: 1 current occupational status: unemployed current occupation: [employer] pets and animals: No history of recent travel: No sexually active: Yes Smoking Status: Never smoker second hand exposure: No alcohol intake: never substance use type: does not use what type of physical activity do you participate in: aerobics and weight training seatbelt use: always do you feel safe at home: Yes additional social history: - Tru ([employer]) History 2 Elective abortions Hx Para 1 Spontaneous abortions Hx # Term Pregnancies Ectopic pregnancies Hx # Pregnancies Multiple births # of living children 1 Past Pregnancies Del. Date Name GA/Weeks Outcome Route Bth Weight Gen Labor Lgth Anesthesia Del Locatn Provider FOB 04/05/20 Sabi 41 live - full term Female epidural [facility] GP Delivery Date: 04/05/20 Last Updated by: Montse Young 1st degree laceration Visit Details Expected Delivery Route/Plan Labor Preferences- CB/BF classes: Denies labor support person: Tru labor intervention preferences: tub labor pain management options preferred: wants to go unmedicated, epidural if needed cut cord/dad catch: Tru would like to catch : yes PP control planned: NFP, condoms discussed possible routes of delivery and associated risks: [] special requests: [] Plans Covid status: declined Flu vaccine: declined Tdap vaccine: declines Rhogam: [] LARC form signed: Done Problem list reviewed and updated with the most current plan of care details and appropriate orders placed. Relevant counseling for the gestational age provided. Continue routine care and follow up unless otherwise noted in visit notes/problem list details OB Flowsheet Initial Weight: Not Recorded Date <del>?</del> EGA Weight BP Urine Prot <del>?</del> Glucose FHR FuHt Pres Dilation <del>?</del> Effaced St Visit Note 03/05/22 <del>?</del> 11w 3d 191 lb 2 oz 118/71 <del>?</del> 150 <del>?</del> JV- new nikos established. CRL off by 1 week. pt was delivered by GP last but was a transfer [facility] for non-progression in labor at 36 weeks. 04/01/22 <del>?</del> 15w 2d 199 lb 6 oz 124/79 Negative <del>?</del> Negative 142 <del>?</del> LC- no vb/cramping. getting nob labs today. anatomy to be scheduled. 04/24/22 <del>?</del> 18w 4d 204 lb 6 oz 121/74 Negative <del>?</del> Negative 155 <del>?</del> JV- pt presents with rash that is raised and itchy. it started out as one large welt on her torso and spread. Her had the same thing a week ago. THis looks like classic pityriasis rosea. I have informed her to take antihistamines as needed but that it will likely resolve on it's own. Studies show no or delivery implications. pt reassured. 05/22/22 <del>?</del> 22w 4d 209 lb 112/74 Negative <del>?</del> Negative 145 <del>?</del> SM- no vb cramping 06/18/22 <del>?</del> 26w 3d 221 lb 119/75 Negative <del>?</del> Negative 146 26 <del>?</del> JV- GCT done today. no complaints. results pending. 07/27/22 <del>?</del> 32w 0d 226 lb 4 oz 114/74 Negative <del>?</del> Negative 147 32 <del>?</del> LC- cbc and second hiv/rpr ordered today. glucose 91. ocular migraines, recommended seeing a neurologist- declines. 08/11/22 <del>?</del> 34w 1d 232 lb 2 oz 117/79 Negative <del>?</del> Negative 135 34 <del>?</del> SM- no vb lof good fm no regular ctx 08/28/22 <del>?</del> 36w 4d 238 lb 121/76 <del>?</del> 130 36 Cephalic <del>?</del> KW- +fm. no lof/vb. some ctx noted. declines VE. GBS done today. discussed meds 09/04/22 <del>?</del> 37w 4d 240 lb 4 oz 116/76 Negative <del>?</del> Negative 140 37 Cephalic <del>?</del> KW-+fm. No vb/lof. some contractions noted. declines VE today. 09/11/22 <del>?</del> 38w 4d 241 lb 8 oz 118/77 Negative <del>?</del> Negative 138 38 Cephalic <del>?</del> JV- vtx on us. no complaints. declines vaginal exam. 09/18/22 <del>?</del> 39w 4d 244 lb 130/70 Negative <del>?</del> Negative 125 38 Cephalic 2.5 <del>?</del> 50 -3 KW-+FM no lof/vb/ctx. labor precautions. 09/25/22 <del>?</del> 40w 4d 149 lb 4 oz 249 lb 4 oz 130/86 Negative <del>?</del> Negative 140 39.5 Cephalic 2 <del>?</del> 50 -3 LC- no lof/vb. no consistent ctx. good fm. membranes swept. LC- no lof/vb. no consistent ctx. good fm. membranes swept.reviewed r/b of delivery before 41 weeks. desires to continue past up until 42 weeks. will schedule NST/BPP on 41 weeks and at 41+4 LC- no lof/vb. no consistent ctx. good fm. membranes swept.reviewed r/b of delivery before 41 weeks. desires to continue past up until 42 weeks. will schedule NST/BLANE on 41 weeks and at 41+4 10/01/22 <del>?</del> 41w 3d 247 lb 13.836 oz 129/78 123/71 130/81 131/79 124/58 131/68 125/72 130/63 131/72 119/68 119/68 121/66 123/68 125/63 108/67 133/66 125/58 123/67 77/41 83/51 103/61 109/61 109/62 128/62 127/58 116/59 121/66 116/66 89/50 104/59 102/61 104/60 105/60 105/62 111/57 111/55 115/59 118/60 124/66 149/75 130/71 124/67 132/73 128/72 121/77 157/70 111/56 120/69 125/74 122/71 126/69 118/69 127/66 113/59 129/62 129/63 127/73 128/69 119/65 116/60 <del>?</del> <del>?</del> NST FHR Rate Baby A Baseline: 140 Variability:: Moderate Accelerations:: 15 x 15 Decelerations:: None NST Reactive:: Yes FHR Category:: Category I Uterine Activity:: q3-5 ROS Constitutional Constitutional: Reports systems reviewed and no addt'l complaints, except as documented ENT HEENT: Reports systems reviewed and no addt'l complaints, except as documented Cardiovascular Cardiovascular: Reports systems reviewed and no addt'l complaints, except as documented Respiratory/Chest Respiratory/Chest: Reports systems reviewed and no addt'l complaints, except as documented Gastrointestinal Gastrointestinal: Reports systems reviewed and no addt'l complaints, except as documented and nausea; Denies abdominal pain Genitourinary Genitourinary: Reports systems reviewed and no addt'l complaints, except as documented, contractions Details: present and frequency (regular ) and movement Details: present Musculoskeletal Musculoskeletal: Reports systems reviewed and no addt'l complaints, except as documented Integumentary Integumentary: Reports as per HPI Neurologic Neurologic: Reports systems reviewed and no addt'l complaints, except as documented Endocrine Endocrinology: Reports systems reviewed and no addt'l complaints, except as documented Vital Signs Vital Signs Vital Signs: 10/01/22 06:02 10/01/22 06:02 10/01/22 06:02 Temperature 98.1 F Pulse Rate 100 Blood Pressure 129/78 H BP Systolic 129 BP Diastolic 78 Pulse Ox 10/01/22 09:53 10/01/22 09:54 10/01/22 09:54 Temperature 97.9 F Pulse Rate 102 H Blood Pressure 123/71 H BP Systolic 123 BP Diastolic 71 Pulse Ox 10/01/22 10:20 10/01/22 10:20 10/01/22 10:20 Temperature Pulse Rate 101 H Blood Pressure 130/81 H BP Systolic 130 BP Diastolic 81 Pulse Ox 99 10/01/22 10:25 10/01/22 10:25 10/01/22 10:25 Temperature Pulse Rate 102 H Blood Pressure 131/79 H BP Systolic 131 BP Diastolic 79 Pulse Ox 99 10/01/22 10:30 10/01/22 10:30 10/01/22 10:31 Temperature Pulse Rate 105 H Blood Pressure 124/58 H BP Systolic 124 BP Diastolic 58 Pulse Ox 98 10/01/22 10:31 10/01/22 10:36 10/01/22 10:36 Temperature Pulse Rate 102 H 103 H Blood Pressure 131/68 H BP Systolic 131 BP Diastolic 68 Pulse Ox 10/01/22 10:35 10/01/22 10:41 10/01/22 10:41 Temperature Pulse Rate 100 Blood Pressure 125/72 H BP Systolic 125 BP Diastolic 72 Pulse Ox 99 10/01/22 10:40 10/01/22 10:45 10/01/22 10:45 Temperature Pulse Rate 104 H Blood Pressure 130/63 H BP Systolic 130 BP Diastolic 63 Pulse Ox 98 10/01/22 10:45 10/01/22 10:50 10/01/22 10:50 Temperature Pulse Rate 111 H Blood Pressure 131/72 H BP Systolic 131 BP Diastolic 72 Pulse Ox 97 10/01/22 10:50 10/01/22 10:50 10/01/22 10:55 Temperature Pulse Rate 98 Blood Pressure 119/68 BP Systolic 119 BP Diastolic 68 Pulse Ox 99 10/01/22 10:55 10/01/22 10:55 10/01/22 10:55 Temperature Pulse Rate 97 99 Blood Pressure BP Systolic BP Diastolic Pulse Ox 97 10/01/22 10:57 10/01/22 10:57 10/01/22 11:00 Temperature Pulse Rate 99 96 Blood Pressure 119/68 BP Systolic 119 BP Diastolic 68 Pulse Ox 10/01/22 11:00 10/01/22 11:01 10/01/22 11:01 Temperature Pulse Rate 99 Blood Pressure 121/66 H BP Systolic 121 BP Diastolic 66 Pulse Ox 98 10/01/22 11:05 10/01/22 11:05 10/01/22 11:05 Temperature Pulse Rate 96 Blood Pressure 123/68 H BP Systolic 123 BP Diastolic 68 Pulse Ox 98 10/01/22 11:10 10/01/22 11:10 10/01/22 11:10 Temperature Pulse Rate 99 Blood Pressure 125/63 H BP Systolic 125 BP Diastolic 63 Pulse Ox 97 10/01/22 11:15 10/01/22 11:15 10/01/22 11:16 Temperature Pulse Rate 101 H Blood Pressure 108/67 BP Systolic 108 BP Diastolic 67 Pulse Ox 98 10/01/22 11:16 10/01/22 11:21 10/01/22 11:21 Temperature Pulse Rate 101 H 101 H Blood Pressure 133/66 H BP Systolic 133 BP Diastolic 66 Pulse Ox 10/01/22 11:20 10/01/22 11:22 10/01/22 11:22 Temperature Pulse Rate 100 Blood Pressure BP Systolic BP Diastolic Pulse Ox 97 87 10/01/22 11:40 10/01/22 11:40 10/01/22 11:55 Temperature Pulse Rate 99 Blood Pressure 125/58 H 123/67 H BP Systolic 125 123 BP Diastolic 58 67 Pulse Ox 10/01/22 11:55 10/01/22 12:09 10/01/22 12:09 Temperature Pulse Rate 98 89 Blood Pressure 77/41 L BP Systolic 77 BP Diastolic 41 Pulse Ox 10/01/22 12:17 10/01/22 12:17 10/01/22 12:23 Temperature Pulse Rate 99 Blood Pressure 83/51 L 103/61 BP Systolic 83 103 BP Diastolic 51 61 Pulse Ox 10/01/22 12:23 10/01/22 12:28 10/01/22 12:28 Temperature Pulse Rate 102 H 97 Blood Pressure 109/61 BP Systolic 109 BP Diastolic 61 Pulse Ox 10/01/22 12:32 10/01/22 12:32 10/01/22 12:38 Temperature Pulse Rate 94 Blood Pressure 109/62 128/62 H BP Systolic 109 128 BP Diastolic 62 62 Pulse Ox 10/01/22 12:38 10/01/22 12:43 10/01/22 12:43 Temperature Pulse Rate 101 H 98 Blood Pressure 127/58 H BP Systolic 127 BP Diastolic 58 Pulse Ox 10/01/22 12:48 10/01/22 12:48 10/01/22 12:49 Temperature Pulse Rate 100 103 H Blood Pressure 116/59 L BP Systolic 116 BP Diastolic 59 Pulse Ox 10/01/22 12:49 10/01/22 12:53 10/01/22 12:53 Temperature Pulse Rate 103 H Blood Pressure 121/66 H BP Systolic 121 BP Diastolic 66 Pulse Ox 100 10/01/22 13:10 10/01/22 13:10 10/01/22 13:24 Temperature Pulse Rate 104 H Blood Pressure 116/66 89/50 L BP Systolic 116 89 BP Diastolic 66 50 Pulse Ox 10/01/22 13:24 10/01/22 13:31 10/01/22 13:31 Temperature Pulse Rate 94 103 H Blood Pressure 104/59 L BP Systolic 104 BP Diastolic 59 Pulse Ox 10/01/22 13:31 10/01/22 13:39 10/01/22 13:39 Temperature 97.9 F Pulse Rate 104 H Blood Pressure 102/61 BP Systolic 102 BP Diastolic 61 Pulse Ox 10/01/22 13:42 10/01/22 13:42 10/01/22 13:47 Temperature Pulse Rate 103 H Blood Pressure 104/60 105/60 BP Systolic 104 105 BP Diastolic 60 60 Pulse Ox 10/01/22 13:47 Temperature Pulse Rate 102 H Blood Pressure BP Systolic BP Diastolic Pulse Ox Weight Weight: 247 lb 13.836 oz Body Mass Index (BMI) 36.6 Physical Exam Const alert, oriented x3 and healthy appearing Constitutional Narrative: uncomfortable with contractions HEENT normocephalic and moist oral mucous membranes Head and Scalp: atraumatic Neck full ROM, no lymphadenopathy, supple and thyroid normal General: trachea midline Thyroid: thyroid normal Lymph Lymphatic: no lymphadenopathy noted Chest inspection of chest normal Resp normal respiratory effort Cardio regular rate GI normal to inspection, nondistended, normoactive bowel sounds, soft to palpation and non-tender Inspection: gravid external exam normal Bimanual Exam - Vag & Uterus: uterus non-tender Manual OB Exam: estimated gestational size appropriate, presentation cephalic, dilated, effaced and station Extremity normal to inspection General Extremity: Negative for edema Skin no rashes or lesions noted Neuro deep tendon reflexes 2+ bilaterally Motor Exam: strength 5/5 throughout and clonus absent Psych mental status grossly normal Labs Labs Labs: Blood Type A POSITIVE Antibody Screen NEGATIVE Hct 33.1 % (37-47) L Hgb 10.8 g/dL (12.0-15.0) L Obstetrics US Syphilis Total Ab Non-reactive Rubella IgG Antibody Non-Reactive (Nonreactive) Hep Bs Antigen Non-Reactive (Nonreactive) Chlamydia DNA (YINKA) Negative (Negative) Neisseria gonorrhoeae DNA (YINKA) Negative (Negative) HIV 1&2 Antibody Non-Reactive (Nonreactive) Glucose 1 Hr 50 gm 91 mg/dL (70-140) Rhogam given: No Assessment & Plan (1) Positive GBS test: COMMENT: treat in labor (2) Rubella non-immune status, antepartum: COMMENT: pt states was never vaccinated for anything in her life (3) Supervision of other normal : COMMENT: PRR NIKOS: 10/08/22 surprise for PC: Sabi : Tru (4) : QUALIFIERS: Weeks of gestation: 40 weeks Qualified Code(s): Z3A.40 - 40 weeks gestation of COMMENT: GBS POS, normal anatomy. declines carrier and genetic testing (5) Nausea and vomiting during : COMMENT: currently taking Zofran (6) Family history of cerebral palsy: COMMENT: Nephew (7) Family history of chromosomal abnormality: COMMENT: Niece (8) Active labor at term: PLAN: Plan admit in labor, exp managment
[2022-10-01] MEDS: Oxytocin 15 Units/NS 250ml 15 UNITS/250 ML IV.SOLN 2 UNITS IV (17:28)
--- NOTE | 2022-10-01 19:14 | EX.PCM.OBRPT ---
Assessment & Plan (1) Active labor at term: (2) Vaginal delivery: COMMENT: SM IAL girl nevanila (3) Family history of chromosomal abnormality: COMMENT: Niece (4) Family history of cerebral palsy: COMMENT: Nephew (5) Nausea and vomiting during : COMMENT: currently taking Zofran (6) : QUALIFIERS: Weeks of gestation: 40 weeks Qualified Code(s): Z3A.40 - 40 weeks gestation of COMMENT: GBS POS, normal anatomy. declines carrier and genetic testing (7) Supervision of other normal : COMMENT: PRR NIKOS: 10/08/22 surprise for PC: Sabi : Tru (8) Rubella non-immune status, antepartum: COMMENT: pt states was never vaccinated for anything in her life (9) Positive GBS test: COMMENT: treat in labor Maternal Data Information NIKOS Calculator Estimated Delivery Date Method Current WG Current Estimate 09/21/22 Ultrasound #1 41w 3d Other Estimates 09/29/22 LMP (Certain) 40w 2d Vaginal Delivery Operative Information Date of Procedure: 10/01/22 Pre-Operative Diagnosis: see a/p diagnoses Post-Operative Diagnosis: same Surgery / Procedure Performed: Spontaneous Vaginal Delivery Type of Anesthesia: Epidural Special Medications: none Estimated Blood Loss: 200 Fluids Replaced: crystalloid Findings Description of Procedure: Patient began pushing and delivered the head in the NHI presentation. The head was delivered atraumatically. The anterior and posterior shoulders delivered without complication followed by the rest of the and the infant was placed on the maternal abdomen. Delayed cord clamping was employed for approximately 60 seconds. Cord was clamped and cut and gentle traction was applied to the cord and the placenta delivered spontaneously immediately following it was noted to be intact with three-vessel cord. The perineum and vagina were inspected and noted to have a first degree perineal laceration which was repaired in the usual fashion with 3-0 vicryl rapide. . EBL was 200 cc. Patient and infant tolerated delivery well. Amniotic Fluid Description: Clear Placental Delivery Description: Spontaneous Placenta Disposition: [facility] Cord Vessel Description: 3 Vessels Cord Entanglement: None Delayed Cord Clamping: Yes Post Vaginal Delivery Medications Given After Delivery: IV Pitocin Episiotomy Description: None Complication Complications: None Procedures Urinary/Genital [id number]: [id number] Vaginal Delivery [facility]
--- NOTE | 2022-10-01 19:14 | DCINST_ITS ---
Discharge Instructions Diet Discharge Diet: No restrictions Activity Discharge Activity: Return to Normal Activity, May Drive, May Shower and May Take a Tub Bath (in 4 weeks) May resume sexual activity in: 6-8 weeks (after seen by OB provider) Weight Bearing Status: Full weight bearing Lifting Restrictions: none Dressing / Incision Call your doctor if you observe: Fever of 101 or Higher, Inability to urinate, Using more than 1 pad per hour (for more than 2 hours in a row or more), Shortness of breath, Dizziness, Chest pain and - (headache not controlled with tylenol, change in vision) Follow Up Care When: in 6 weeks for visit, call the office to make the appointment. If you had elevated blood pressures call the office to be seen within 1 week. Test Results: Test results from this visit will be discussed in further detail at your follow- up appointment, if applicable. Discharge Plan Admission Admit Date/Time: 10/01/22 07:50 Attending Provider: Conchita Guillen Primary Care Provider: Care Physician,No Primary Consulting Providers: Angi Tariq Discharge Orders/Prescriptions Prescriptions: No Action plexis probiotic 2 capsule PO DAILY plexis bioclense 2 capsule PO DAILY Referrals / Follow Up: Care Physician,No Primary [Primary Care Provider] - Disposition Disposition (needs filled in before D/C Order can be placed): Home, Self Care
[2022-10-01] MEDS: Oxytocin 15 Units/NS 250ml 15 UNITS/250 ML IV.SOLN 83 UNITS IV (20:15)
[2022-10-01] MEDS: Acetaminophen 500 MG Tablet 1000 MG PO (20:38)
[2022-10-01] MEDS: 0.9% Saline Lock 10 ML Syringe IV (23:30)
[2022-10-02] VITALS (13 sets, daily range): BP systolic 110–132; BP diastolic 52–75; PULSE 88–98; RESP 16–17; TEMP 36.2–36.9; O2SAT 97–99
--- NOTE | 2022-10-02 07:38 | PCM.PN.OB ---
Subjective Subjective Patient doing well without complaints. Tolerating PO. Ambulating and voiding without difficulty. feeding well. Denies chest pain, shortness of breath, calf pain/swelling, fevers, chills, lightheadedness. Objective Data Objective Data Vital Signs: Vital Signs Temp Pulse Resp BP Pulse Ox O2 Del Method 97.5 F L 97 16 110/52 L 100 Room Air 10/02/22 04:26 10/02/22 04:26 10/02/22 04:20 10/02/22 04:26 10/01/22 12:49 10/02/22 04:20 Oxygen Delivery Method Room Air Weight: 247 lb 13.836 oz Body Mass Index (BMI) 36.6 Intake & Output: Intake and Output for Last 24 Hours 09/30/22 10/01/22 10/02/22 23:59 23:59 23:59 Intake Total 4555.00 / 4555.00 Output Total 800 / 800 1500 / 1500 Balance 3755.00 / 3755.00 -1500 / -1500 Lab / Micro Data Result Diagrams: 10/01/22 09:15 Labs: Laboratory Results - last 24 hr 10/01/22 09:15: WBC 16.1 H, RBC 3.86 L, Hgb 10.8 L, Hct 33.1 L, MCV 85.8, MCH 28.0, MCHC 32.6, RDW Std Deviation 45.4 H, RDW Coeff of Mimi 14.7 H, Plt Count 239, MPV 10.2, Immature Gran % (Auto) 0.800, Neut % (Auto) 85.7 H, Lymph % (Auto) 7.9 L, [place] % (Auto) 5.0, Eos % (Auto) 0.4, Baso % (Auto) 0.2, Absolute Neuts (auto) 13.8 H, Absolute Lymphs (auto) 1.27, Nucleated RBC % 0 10/01/22 09:15: Blood Type A POSITIVE, Antibody Screen NEGATIVE 10/01/22 09:15: Syphilis Total Ab Non-reactive ROS Constitutional Constitutional: Reports systems reviewed and no addt'l complaints, except as documented Cardiovascular Cardiovascular: Reports systems reviewed and no addt'l complaints, except as documented Respiratory/Chest Respiratory/Chest: Reports systems reviewed and no addt'l complaints, except as documented Gastrointestinal Gastrointestinal: Reports systems reviewed and no addt'l complaints, except as documented Physical Exam Const alert, oriented x3 and no apparent distress HEENT Head and Scalp: atraumatic Resp normal respiratory effort GI soft to palpation and non-tender Bimanual Exam - Vag & Uterus: uterus non-tender Uterus Palpation: uterus fundus firm (below Umbilicus) Assessment & Plan (1) Vaginal delivery: COMMENT: SM IAL girl neveah (2) Rubella non-immune status, antepartum: COMMENT: pt states was never vaccinated for anything in her life PLAN: Plan s/p PPD # 1 1. routine post delivery care 2. breast feeding- support given 3. rh positive 4. rubella nonimmune declines vaccines
[2022-10-02] MEDS: Naproxen 500 MG Tablet PO (09:23)
== END 2022-10-02 21:00 | disposition home or self-care (01) | DRG 807 ==
LOC: WPOUT 08:08 → WP 10:26
PROVIDERS: Registered Nurse; Admitting Provider Obstetrics & Gynecology; Referring Provider Obstetrics & Gynecology; Visit Provider Obstetrics & Gynecology
DX: O99.824 Streptococcus B carrier state complicating childbirth (principal); Z37.0 Single live birth; Z28.29 Immunization not carried out because of patient decision for other reason; O70.0 First degree perineal laceration during delivery; Z3A.40 40 weeks gestation of pregnancy
CPT/HCPCS: 59025; 59050; 84112; 85025; 86780; 86850; 86900; 86901; 99221; J7120; A4216; G0378

== ENCOUNTER 2024-06-30 08:47 | Emergency (ER) | payer SELFPAY ==
[2024-06-30 08:47] VITALS: BP 153/89; PULSE 85; RESP 14; TEMP 36.6; O2SAT 99; BMI 29.4
--- NOTE | 2024-06-30 08:55 | ED.RN ---
PT HAD APPENDECTOMY AT [facility]. EXPERIENCING RASH AND PAINFUL/ITCHING/REDNESS TO ABD FROM SURGERY. PT HAS RASH ON CHEST, HIPS, ABD, AND THIGHS. DENIES ANY OTHER COMPLAINTS. SURGICAL SITES ALL LOOK THE SAME REDNESS AND TEMP. DR HODGES AT BEDSIDE AND FEELS IT IS ALLERGIC REACTION.
--- NOTE | 2024-06-30 09:00 | EX.ED.DYSGE1 ---
HPI History of Present Illness Chief Complaint: Wound Informant: patient Onset/Context/Timing Onset: Days Context: Gradual Onset Timing: Continuous Maximum Severity: Mild Narrative Narrative: 33-year-old female G3, P2 Ab0 approximately 6 weeks status post laparoscopic appendectomy done to [facility] on Wednesday. Discharged that day. Since surgery she has developed a rash that itches on her abdomen and redness around the 3 laparoscopic incision sites that were all closed with glue. She denies any fever or chills. Said otherwise she feels fine. Today was seen by her MANAGER PLAY in the office. They sent her for evaluation. They did ultrasound the office today and the otherwise is going well. Prior similar symptoms: No Recent Illness/Hospitalization: No PFSH PFSH Medical History Vaginal delivery Rubella non-immune status, antepartum Home Medications ?Medication ?Instructions ?Recorded ?Last Taken ?Type polysaccharide iron complex 200 mg 200 mg PO QDAY 06/29/24 Unknown History iron capsule (EZFE 200) vit no.164-ferrous 1 tab PO 06/29/24 06/30/24 History gluconate 6 mg-folate 833.5 mcg DFE tablet (Helga PNV) cephalexin 500 mg capsule 500 mg PO Q8H 7 days #21 caps 06/30/24 Unknown Rx Allergy/AdvReac Type Severity Reaction Status Date / Time No Known Allergies Allergy Verified 06/30/24 08:48 Family History Grandfather Heart disease Myocardial infarction Grandmother Bone cancer Mother Breast cancer Surgical History S/P appendectomy Status post right foot surgery S/P ACL surgery H/O elbow surgery Social History adopted: No household members: spouse and children number of children: 2 current occupational status: unemployed current occupation: [employer] pets and animals: No history of recent travel: No sexually active: Yes Smoking Status: Never smoker second hand exposure: No alcohol intake: never substance use type: does not use caffeine: Yes (not in 1st trimester) eating out: rarely or never during the past year weight has: remained stable what type of physical activity do you participate in: aerobics and weight training frequency: 3-4 times per week ary/anabaptism: Jainism seatbelt use: always do you feel safe at home: Yes additional social history: - [employer] ([employer]) ROS ROS ED ROS Narrative Denies fever or chills. Rash on her abdomen. Itching. Constitutional Constitutional ED: Denies chills or fever(s) Eyes Eyes: Denies blurry vision ENT ENT ED: Denies ear pain Respiratory/Chest Respiratory/Chest: Denies cough or dyspnea Gastrointestinal Gastrointestinal: Denies abdominal pain Genitourinary Genitourinary ED: Denies dysuria or hematuria Musculoskeletal Musculoskeletal: Denies arthralgias or back pain Integumentary Reports rash; Denies abscess or Abrasions Neurologic Neurologic: Denies headache(s) Endocrine Endocrinology: Denies cold intolerance Allergic/Immunologic Allergic/Immunologic ED: Denies mouth swelling, tongue swelling or urticaria EXAM Physical Exam Narrative Exam Narrative: Well-appearing 33-year-old female. Sitting upright in bed. Vital signs are stable afebrile. No distress. H EENT exam pupils round react light. Moist mucous membranes. No swelling of the lips or tongue. Neck nontender no lymphadenopathy. Lungs clear to auscultation bilaterally. Heart regular rhythm rate about 85 no murmur. Chest wall ribs nontender. Abdomen soft, nontender, nondistended, normal bowel sounds without peritoneal signs. She has 3 laparoscopic incision sites all closed with glue with surrounding erythema that most likely is allergic reaction could be early infection. It is not tender. There is no pus. No palpable abscess. She also has a diffuse rash on her abdomen flanks consistent with allergic reaction that blanches. No petechiae or purpura. No sloughing of skin. No vesicles or pustules. Moves all 4 extremities. Nontender no edema. Patient is awake and alert no focal motor deficits. Const Vital Signs: 06/30/24 08:47 Temperature 98 F Temperature Source Temporal Pulse Rate 85 Respiratory Rate 14 Blood Pressure 153/89 H Blood Pressure Mean 110 Pulse Ox 99 Oxygen Delivery Method Room Air Positive well nourished and well developed; Negative for obese, cachectic, contractures or unkempt General Appearance ED: well developed and NAD; Negative for unkempt, cachectic, contractures, cyanotic, diaphoretic or pallor Nutritional Appearance: Negative for cachectic or obese HEENT Reports moist mucous membranes Negative for trauma or tenderness Eyes PERRL and EOMs intact bilaterally General Eye ED: Negative for pale conjunctiva or scleral icterus Neck no lymphadenopathy, supple and no JVD General: Negative for tenderness Chest Wall inspection of chest normal Resp normal respiratory effort and clear to auscultation bilaterally Effort and Inspection: Negative for retractions Auscultation: Negative for rales, rhonchi, wheezes or diminished lung sounds GI normal to inspection, nondistended, normoactive bowel sounds, non-tender, non-distended and no masses GI Narrative: Well-healing 3 laparoscopic surgical incisions. Surrounding erythema about an inch around the wound. Most likely allergic reaction could be early cellulitis. No abscess. She also has a diffuse rash on her abdomen consistent with allergic reaction. Auscultation: normoactive bowel sounds Palpation: soft; Negative for tender, guarding or rebound tenderness present Back/Spine no CVA tenderness Cervical Spine: Negative for cervical spine tenderness Thoracic Spine / Upper Back: Negative for thoracic spinal tenderness Lumbar Spine / Lower Back: Negative for lumbar spinal tenderness Extremity normal to inspection General Extremety ED: Negative for edema or tenderness General Extremity: Negative for edema Neuro oriented x3 and CN's II-XII intact bilaterally Sensorium / Orientation: alert; Negative for orientation impaired, lethargic or stuporous Motor Exam: strength 5/5 throughout Psych mental status grossly normal Appearance: Negative for unkempt Attitude: No agitated Mood & Affect: Negative for depressed, anxious or tearful Skin No no rashes or lesions noted and skin turgor normal Skin Narrative: Surrounding erythema to 3 laparoscopic sites most likely secondary allergic reaction. Diffuse rash over the abdomen consistent with allergic reaction. General Skin Exam: Negative for jaundice or pallor Rashes: rashes noted MDM MDM MDM Narrative Medical decision making narrative: 33-year-old female G3, P2 currently 6 weeks status post appendectomy has allergic rash on her abdomen from the surgery and most likely allergic reaction to the surgical glue at the wounds. I talked to the patient's MANAGER PLAY Dr. Conchita Guillen. Will treat her for the allergic reaction with Benadryl. At this stage of her she does not want to use steroids. Will also put her on Keflex 3 times a day for a possible surgical wound infection but most likely this is allergic reaction also. Patient knows to return if he is feeling worse or develops a fever. Otherwise follow-up with MANAGER PLAY. Discharge Plan Triage Chief Complaint: Wound ED Provider: Salvador Rosario Dx/Rx/DC Orders Clinical Impression: Allergic reaction, First trimester Instructions: ED General Allergic Reactions Prescriptions: New cephalexin 500 mg capsule 500 mg PO Q8H 7 Days Qty: 21 0RF No Action Helga PNV 6 mg iron- 833.5 mcg DFE tablet 1 tab PO EZFE 200 200 mg iron capsule 200 mg PO QDAY Primary Care Provider: Care Physician,No Primary Referrals: Conchita Guillen MD [Med Staff - Active Staff] - Keep Ziggy appointment Care Physician,No Primary [Primary Care Provider] - Activity Restrictions/Additional Instructions: You have an allergic reaction to the surgical prep on your abdomen and the glue at your incision sites. I would use Benadryl twice a day for the itching and the rash. You could also put Benadryl cream around the wound sites. You can also use Pepcid which is a medication for your stomach. But that is also good for allergic reactions. You can take that twice a day. You can buy that [id number]. Put you on Keflex 3 times a day as an antibiotic for a possible wound infection of the surgical sites but most likely this is allergic reaction. If you develop a fever or feeling worse return. The rash should start getting better in the next 24 to 72 hours. It may take several days to a week to resolve. Print Language: Faroese Disposition Disposition: Home, Self Care
[2024-06-30 09:52] VITALS: BP 153/89; PULSE 85; RESP 16; TEMP 36.7; O2SAT 99
== END 2024-06-30 09:53 | disposition home or self-care (01) ==
PROVIDERS: Emergency Provider Emergency Medicine; Visit Provider Emergency Medicine
DX: O9A.211 Injury, poisoning and certain other consequences of external causes complicating pregnancy, first trimester (principal); Z90.49 Acquired absence of other specified parts of digestive tract; T78.49XA Other allergy, initial encounter; Z3A.01 Less than 8 weeks gestation of pregnancy
CPT/HCPCS: 99283

== ENCOUNTER → 2024-06-30 | Outpatient (CLI) | payer SELFPAY ==
[2024-07-03 20:07] LABS: Chlamydia By Nucleic Acid AMP Negative (Negative); Gonococcus By Nucleic Acid AMP Negative (Negative)
[2024-07-05 10:08] LABS: HPV APTIMA, High Risk Negative (Negative)
== END | disposition home or self-care (01) ==
LOC: LABSPEC 10:48
PROVIDERS: Referring Provider Obstetrics & Gynecology; Visit Provider Obstetrics & Gynecology
DX: Z34.90 Encounter for supervision of normal pregnancy, unspecified, unspecified trimester (principal)
CPT/HCPCS: 87086; 87088; 87491; 87591; 87624; 88175; G0145

== ENCOUNTER → 2024-07-28 | Outpatient (CLI) | payer SELFPAY ==
[2024-07-28 11:53] LABS: Absolute Lymphocyte Count 1.92 X10^3/uL (0.83-4.51); Absolute Neutrophil Count 5.9 X10^3/uL (2.0-7.7); Basophil# 0.02 X10^3/uL; Basophil% 0.2 % (0-1); Eosinophil# 0.14 X10^3/uL; Eosinophils% 1.6 % (0-5); Hematocrit 36.9 % (37-47); Hemoglobin 12.6 g/dL (12.0-15.0); Lymphocyte # 1.92 X10^3/ul (0.83-4.51); Lymphocyte % 22.6 % (19-41); Mean Corp Hgb Conc 34.1 g/dL (32-36); Mean Corpuscular Hgb 28.8 pg (27.0-32.0); Mean Corpuscular Volume 84.2 fL (81-99); Monocyte# 0.52 X10^3/uL; Monocyte% 6.1 % (0-10); NRBC Flagged by Analyzer 0 % (0-5); Neutrophil # 5.87 X10^3/uL (2.7-7.7); Neutrophil % 69.3 % (47-70); Platelet Count 231 K/mm3 (150-450); RBC Distribution Width CV 12.8 % (11.6-14.6); RBC Distribution Width SD 39.2 fl (35.1-43.9); Red Blood Count 4.38 M/mm3 (4.2-5.4); White Blood Count 8.5 K/mm3 (4.4-11.0)
[2024-07-28 12:29] LABS: Hepatitis B Surface Antigen Nonreactive (Nonreactive); Hepatitis C Antibody Nonreactive (Nonreactive); Rubella IgG Nonreactive (Nonreactive); Syphilis Antibodies Nonreactive (Nonreactive)
[2024-08-02 14:05] LABS: HIV Nonreactive (Nonreactive)
== END | disposition home or self-care (01) ==
PROVIDERS: Obstetrics & Gynecology; Referring Provider Registered Nurse; Visit Provider Registered Nurse
DX: Z34.80 Encounter for supervision of other normal pregnancy, unspecified trimester (principal); Z3A.00 Weeks of gestation of pregnancy not specified
CPT/HCPCS: 36415; 85025; 86703; 86762; 86780; 86803; 86850; 86900; 86901; 87340

== ENCOUNTER → 2024-10-10 | Outpatient (CLI) | payer SELFPAY ==
--- NOTE | 2024-10-10 15:23 | US_ITS ---
PROCEDURE: OB ANATOMY W/ TRANSVAGINAL 10/10/2024 REASON FOR EXAM: ANATOMY/CERVICAL LENGTH TECHNIQUE: High resolution obstetric ultrasound performed using a 2D transducer. Standard views obtained, including biometry, anatomy survey, and Doppler studies. COMPARISON: None FINDINGS LMP: May 17, 2024. Number: 1 Position: Vertex Placental Position: Anterior and not low-lying. Placental Abnormalities: None DIMENSIONS: Biparietal Diameter: 4.8 cm: 20 weeks and 4 days: 36 percentile/ Head Circumference: 18.4 cm: 20 weeks and 5 days: 35th percentile/ Abdominal Circumference: 17.5 cm: 22 weeks and 3 days: 87 percentile/ Femur Length: 3.5 cm: 21 weeks and 1 day: 52nd percentile/ ESTIMATED WEIGHT: 445 g plus/-67 g ESTIMATED WEIGHT PERCENTILE (24+ weeks): 86 ESTIMATED GESTATIONAL AGE: Baseline: 20 weeks and 6 days By Ultrasound: 21 weeks and 1 day ESTIMATED DATE OF DELIVERY: Baseline: February 21, 2025 By Ultrasound: February 19, 2025 BIOPHYSICAL ASSESSMENT: Amniotic Fluid Volume: 3.8 cm Amniotic Fluid Index: Within normal limits. (8-24 cm normal range) Cardiac Motion: 147 beats per minute (average) Trunk and Limb Motion: Present. MATERNAL ANATOMY: Adnexa: Neither maternal ovary is successfully identified. Cervical Length (if measured): 5.8 cm ANATOMY: Spine: Unremarkable Cranium: Unremarkable Cerebellum: Unremarkable Cisterna Magna: Unremarkable Cavum Septum Pellucidi: Unremarkable Lateral Ventricles: Unremarkable Choroid Plexus: 3 mm x 3 mm by 2 mm left choroid plexus cyst. Midline Falx: Unremarkable Nuchal Fold: Unremarkable Upper Lip: Unremarkable Heart: Unremarkable Ventricular Outflow Tracts: Unremarkable Stomach: Unremarkable Kidneys: Fullness of both renal pelves. Right measures 0.4 cm in the left measures 0.3 cm. Bladder: Unremarkable Umbilical Cord: Unremarkable Extremities: Unremarkable US/OB Anatomy w/ Transvaginal IMPRESSION: Single live intrauterine gestation with a mean gestational age of 21 weeks and 1 day. Reading Location: [id number]
== END | disposition home or self-care (01) ==
LOC: US 15:19
PROVIDERS: Referring Provider Obstetrics & Gynecology; Visit Provider Obstetrics & Gynecology
DX: Z34.90 Encounter for supervision of normal pregnancy, unspecified, unspecified trimester (principal)
CPT/HCPCS: 76805; 76817

== ENCOUNTER → 2024-11-15 | Outpatient (CLI) | payer SELFPAY ==
[2024-11-15 12:09] LABS: Hematocrit 33.7 % (37-47); Hemoglobin 11.5 g/dL (12.0-15.0); Immature Granulocytes Count 0.040 X10^3/uL (0.0-0.0); Mean Corp Hgb Conc 34.1 g/dL (32-36); Mean Corpuscular Volume 87.8 fL (81-99); Mean Platelet Vol. 10.1 fl (6.2-12.0); NRBC Flagged by Analyzer 0 % (0-5); Platelet Count 205 K/mm3 (150-450); RBC Distribution Width CV 13.0 % (11.6-14.6); RBC Distribution Width SD 42.0 fl (35.1-43.9); Red Blood Count 3.84 M/mm3 (4.2-5.4); White Blood Count 10.1 K/mm3 (4.4-11.0)
[2024-11-15 12:59] LABS: Glucose Challenge Gest 1H 50g 83 mg/dL (70-140); HIV Nonreactive (Nonreactive); Syphilis Antibodies Nonreactive (Nonreactive)
== END | disposition home or self-care (01) ==
PROVIDERS: Nurse Practitioner Women's Health; Visit Provider Obstetrics & Gynecology
DX: Z34.80 Encounter for supervision of other normal pregnancy, unspecified trimester (principal); Z13.1 Encounter for screening for diabetes mellitus
CPT/HCPCS: 36415; 82950; 85025; 86703; 86780

== ENCOUNTER → 2024-12-14 | Outpatient (CLI) | payer SELFPAY | END | disposition home or self-care (01) | LOC: LABSPEC 16:07 | PROVIDERS: Visit Provider Advanced Practice Midwife | DX: R10.9 Unspecified abdominal pain (principal) | CPT/HCPCS: 87077; 87086; 87088 ==

== ENCOUNTER → 2024-12-25 | Outpatient (CLI) | payer SELFPAY | END | disposition home or self-care (01) | LOC: LABSPEC 12:18 | PROVIDERS: Visit Provider Obstetrics & Gynecology | DX: O23.40 Unspecified infection of urinary tract in pregnancy, unspecified trimester (principal); B95.1 Streptococcus, group B, as the cause of diseases classified elsewhere; Z3A.00 Weeks of gestation of pregnancy not specified | CPT/HCPCS: 87086; 87088 ==

== ENCOUNTER 2025-02-26 09:08 | Inpatient (IN) | payer SELFPAY ==
[2025-02-26] VITALS (25 sets, daily range): BP systolic 120–142; BP diastolic 63–84; PULSE 84–108; RESP 16–18; TEMP 35.7–36.7; O2SAT 95–98; BMI 36.6
[2025-02-26] MEDS: 0.9% Saline Lock 10 ML Syringe IV (10:20)
--- NOTE | 2025-02-26 10:31 | HP.PCM.OB_ITS ---
HPI - General General Date of Admission: 02/26/25 Date of Service: 02/26/25 HPI Narrative NAYAN ISLAS, is a 34 F at 40.5 weeks who presents to unit with SROM for heavy mec fluid. contractions q 4 minutes palpating moderate. /-2 Maternal Data Information NIKOS Calculator Estimated Delivery Date Method Current WG Current Estimate 02/21/25 Ultrasound #1 40w 5d Other Estimates 02/15/25 LMP (Certain) 41w 4d Final NIKOS: 02/21/25 Final NIKOS Source: US >20 weeks Gestational age: 40.5 PFSH PFSH Medical History Vaginal delivery Rubella non-immune status, antepartum Home Medications ?Medication ?Instructions ?Recorded ?Last Taken ?Type polysaccharide iron complex 200 mg 200 mg PO QDAY supp lement 06/29/24 Unknown History iron capsule (EZFE 200) vit no.164-ferrous 1 tab PO DAILY 0 06/29/24 06/30/24 History gluconate 6 mg-folate 833.5 mcg DFE tablet (Helga PNV) ondansetron 4 mg disintegrating 4 mg PO Q4H PRN nausea and 07/19/24 Unknown Rx tablet vomiting #60 tabs Allergy/AdvReac Type Severity Reaction Status Date / Time No Known Allergies Allergy Verified 02/26/25 09:27 Family History Grandfather Heart disease Myocardial infarction Grandmother Bone cancer Mother Breast cancer Surgical History S/P appendectomy Status post right foot surgery S/P ACL surgery H/O elbow surgery Social History adopted: No household members: spouse and children number of children: 2 current occupational status: unemployed current occupation: [employer] pets and animals: No history of recent travel: No sexually active: Yes Smoking Status: Never smoker second hand exposure: No alcohol intake: never substance use type: does not use caffeine: Yes (not in 1st trimester) eating out: rarely or never during the past year weight has: remained stable what type of physical activity do you participate in: aerobics and weight training frequency: 3-4 times per week ary/yazdanism: Hindu seatbelt use: always do you feel safe at home: Yes additional social history: - [employer] (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 Date Name GA/Weeks Outcome Route Bth Weight Gen Labor Lgth Anesthesia Del Locatn Provider FOB 04/05/20 Sabi 41 live - full term Female epidu ral [facility] GP 10/01/22 Neheah 40 live - full term Female [facility] Marcanthony Delivery Date: 04/05/20 Last Updated by: Montse Young 1st degree laceration Delivery Date: 10/01/22 Last Updated by: Cecilia Ty IOL [id number] Visit Details Expected Delivery Route/Plan Labor Preferences- CB/BF classes: no labor support person: Tru labor intervention preferences: [] pain management options preferred: limited intervention; wants tub labor cut cord/dad catch: yes : yes PP control planned: [] discussed possible routes of delivery and associated risks: [] special requests: [] Plans Covid status: [] Flu vaccine: [] Tdap vaccine: declines Rhogam: [] LARC form signed: yes movement and labor precautions reviewed. Problem list reviewed and updated with the most current plan of care details and appropriate orders placed. Relevant counseling for the gestational age provided. Continue routine care and follow up unless otherwise noted in visit notes/problem list details OB Flowsheet Initial Weight: 199 lb Date -?-?-?-?-?-?-?-?-?-?-?-?- EGA Weight BP Urine Prot -?--?-?-?-?-?-?-?-?-?-?-?- Glucose FHR FuHt Pres Dilation -?-?-?-?-?-?-?--?-?-?-?-?- Effaced St Visit Note 06/30/24 -?-?-?-?-?-?-?-?-?-?-?-?- 6w 2d 199 lb 4 oz (+4 oz) 125/78 -?-?-?-?-?-?-?-?-?-?-?-?- 130 -?-?-?-?-?-?-?-?-?-?-?-?- SM- CRL 5.6mm 07/28/24 -?-?-?-?-?-?-?-?-?-?-?-?- 10w 2d 195 lb (-4 lb) 128/80 Negative -?-?-?-?-?-?-?-?-?-?-?-?- Negative 168 -?-?-?-?-?-?-?-?-?-?-?-?- LC- obtaining no b labs today, declines nipt. no concerns today. sp appy. 08/24/24 -?-?-?-?-?-?-?-?-?-?-?-?- 14w 1d 202 lb 4 oz (+3 lb 4 oz) 108/68 Negative -?-?-?-?-?-?-?-?-?-?-?-?- Negative 158 -?-?-?-?-?-?-?-?-?-?-?-?- JV- no lof, vagi nal bleeding, or cramping. No complaints. feels better now that entered 2nd trimester. 09/19/24 -?-?-?-?-?-?-?-?-?-?-?-?- 17w 6d 209 lb 6 oz (+10 lb 6 oz) 127/75 Negative -?-?-?-?-?-?-?-?-?-?-?-?- Negative 147 -?-?-?-?-?-?-?-?-?-?-?-?- KW- no vb/crampi ng. US at [facility] do to insurance-scheduled. no concerns today. desires unmedicated 10/16/24 -?-?-?-?-?-?-?-?-?-?-?-?- 21w 5d 209 lb 6 oz (+10 lb 6 oz) 110/68 Negative -?-?-?-?-?-?-?-?-?-?-?-?- Negative 143 -?-?-?-?-?-?-?-?-?-?-?--?- MH-No VB. Has co ugh/congestion. No fever. Kids have it too. Reviewed safe meds. Good FM 11/15/24 -?-?-?-?-?-?-?-?-?-?-?-?- 26w 0d 215 lb (+16 lb) 112/75 Negative -?-?-?-?-?-?-?-?-?-?-?-?- Negative 142 26 -?-?-?-?-?-?-?-?-?-?-?-?- JV- glucola toda y. no complaints. + fm 12/14/24 -?-?-?-?-?-?-?-?-?-?-?-?- 30w 1d 226 lb (+27 lb) 110/64 Negative -?-?-?-?-?-?-?-?-?-?-?-?- Negative 135 31 -?-?-?-?-?-?-?-?-?-?-?-?- KW- work in for SM. no vb/lof/ctx. good fm. LARC today. encouraged more protein to help avoid low blood sugars. 12/25/24 -?-?-?-?-?-?-?-?-?-?-?-?- 31w 5d 227 lb 1 oz (+28 lb 1 oz) 118/75 Negative -?-?-?-?-?-?-?-?-?-?-?-?- Negative 145 32 0 -?-?-?-?-?-?-?-?-?-?-?-?- SM- co lwer pelv ic pain and intermittent tightening and pain feels like UTI or ctx like symptoms, cervix closed previous ua results reviewed, fitz writtent and repeat ua culture ordered 01/10/25 -?-?-?-?-?-?-?-?-?-?-?-?- 34w 0d 234 lb 3 oz (+35 lb 3 oz) 114/72 -?-?-?-?-?-?-?-?-?-?-?-?- 138 34 -?-?-?-?-?-?-?--?-?-?-?-?- MH-No VB, LOF. I rreg BH ctx. No concerns. 01/25/25 -?-?-?-?-?-?-?-?-?-?-?-?- 36w 1d 238 lb 8 oz (+39 lb 8 oz) 134/75 Negative -?-?-?-?-?-?-?-?-?-?-?-?- Negative 135 36 Cephalic 0 .5 -?-?-?-?-?-?-?-?-?-?-?-?- SM- no vb lof go od fm no regular ctx discussed gbs status 02/01/25 -?-?-?-?-?-?-?-?-?-?-?-?- 37w 1d 241 lb 1 oz (+42 lb 1 oz) 144/85 122/84 Negative -?-?-?-?-?-?-?-?-?-?-?-?- Negative 140 38 0.5 -?-?-?-?-?-?-?-?-?-?-?-?- 30 JV- tiffany ent had elevated pressure with the wrong cuff. rpt is 122/84. cephalic. and -3 02/08/25 -?-?-?-?-?-?-?-?-?-?-?-?- 38w 1d 243 lb (+44 lb) 120/80 Negative -?-?-?-?-?-?-?-?-?-?-?-?- Negative 145 38 Cephalic 1 -?-?-?-?-?-?-?-?-?-?-?-?- 40 -2 KW- no vb/ lof/reg ctx. good fm. 02/16/25 -?-?-?-?-?-?-?-?-?-?-?-?- 39w 2d 246 lb 9 oz (+47 lb 9 oz) 117/76 Negative -?-?-?-?-?-?-?-?-?-?--?-?- Negative 140 39 Cephalic -?-?-?-?-?-?-?-?-?-?-?-?- SM- had ocular m igraine this week, resolved. no vb lof good fm no reuglar ctx NST FHR Rate Baby A Baseline: 140 Variability:: Moderate Accelerations:: 15 x 15 Decelerations:: None NST Reactive:: Yes FHR Category:: Category I Uterine Activity:: 3-4 minutes ROS Constitutional Constitutional: Denies change in weight, fatigue, fever(s), headache(s), poor appetite or weakness Eyes Eyes: Denies blurry vision, change in vision, floaters, seeing flashes or spots in vision ENT HEENT: Denies dizziness, headache(s), loss taste/smell or sore throat Cardiovascular Cardiovascular: Denies chest pain, dizziness, dyspnea, irregular heart rhythm, lightheadedness, palpitations or rapid heart rate Respiratory/Chest Respiratory/Chest: Denies change in mental status, chest tightness, cough, dyspnea or breast pain Gastrointestinal Gastrointestinal: Denies anorexia, chewing difficulty, constipation, diarrhea or weight changes Genitourinary Genitourinary: Denies difficulty urinating, dysuria, flank pain, genital pain, urinary frequency or urinary urgency Musculoskeletal Musculoskeletal: Denies back pain, difficulty walking, extremity pain, joint pain, muscle cramps or muscle weakness Integumentary Integumentary: Denies lesions or unusual bruising Neurologic Neurologic: Denies abnormal movements, abnormal speech, dizziness, numbness, seizure-like activity, syncope or weakness Psychiatric Psychiatric: Denies behavioral changes, change in appetite, confusion, depression, homicidal ideation, suicidal ideation or suicidal thoughts Endocrine Endocrinology: Denies excessive sweating, polydipsia or polyuria Hematologic/Lymphatic Hematologic/Lymphatic: Denies anemia Allergic/Immunologic Allergic/Immunologic: Denies itchy eyes, lip swelling, throat swelling, tongue swelling or wheezing Vital Signs Vital Signs Vital Signs: 02/26/25 09:45 02/26/25 09:45 02/26/25 09:45 Temperature Temperature Source Pulse Rate 108 H Respiratory Rate Blood Pressure 122/75 H BP Systolic 122 BP Diastolic 75 Pulse Ox 95 02/26/25 09:53 02/26/25 09:53 02/26/25 09:53 Temperature 97.3 F L Temperature Source Temporal Pulse Rate Respiratory Rate 17 Blood Pressure BP Systolic BP Diastolic Pulse Ox Weight Weight: 248 lb 8 oz Body Mass Index (BMI) 36.6 Physical Exam Const alert, oriented x3 and no apparent distress General Appearance: cooperative Orientation / Consciousness: awake HEENT normocephalic Neck full ROM Lymph Lymphatic: no lymphadenopathy noted Chest inspection of chest normal Resp normal respiratory effort and normal air movement Effort and Inspection: able to speak in complete sentences and symmetric chest movement GI soft to palpation and non-tender Inspection: gravid Palpation: soft; Negative for tender external exam normal Back/Spine normal to inspection Extremity normal to inspection and full ROM Skin no rashes or lesions noted Psych mental status grossly normal Appearance: grossly normal Speech: normal speech Labs Labs Labs: Blood Type A POSITIVE Antibody Screen NEGATIVE Hct, (37-47) 33.7 % L Hgb, (12.0-15.0) 11.5 g/dL L Obstetrics Ultrasound Syphilis Total Ab, (Nonreactive) Nonreactive Rubella IgG Antibody, (Nonreactive) Nonreactive Hep Bs Antigen, (Nonreactive) Nonreactive Hepatitis C Antibody, (Nonreactive) Nonreactive Chlamydia DNA (YINKA), (Negative) Negative N.gonorrhoeae DNA (YINKA), (Negative) Negative HIV 1&2 Antibody, (Nonreactive) Nonreactive Glucose 1 Hr 50 gm, (70-140) 83 mg/dL Rhogam given: No Assessment & Plan (1) Active labor: PLAN: Patient presents IAL, plan expectant management for , pitocin/AROM PRN if needed. Pain management: plans no epidural. GBS positive plan IV PCN. Management of any complications: none I have reviewed the [facility] and made any clinically relevant updates. Dr Martinez aware of assessment and plan and admission. (2) GBS (group B streptococcus) UTI complicating : QUALIFIERS: Trimester: third trimester Qualified Code(s): O23.43 - Unspecified infection of urinary tract in , third trimester; B95.1 - Streptococcus, group B, as the cause of diseases classified elsewhere COMMENT: not high enough to treat. treat in labor (3) Supervision of other normal : COMMENT: [id number], NIKOS 02/21/25, Sabi Guerrero. Tru (4) : QUALIFIERS: Weeks of gestation: 39 weeks Qualified Code(s): Z3A.39 - 39 weeks gestation of COMMENT: requests No Vit K inj for baby!!! anatomy nl, NIPT w gender & carrier- declines Choroid plexus cyst noted on US. pt aware and still declines NIPT (5) S/P appendectomy: COMMENT: Emergent surgery by Dr. Juárez at [facility]. 06/24/24 (6) Rubella non-immune status, antepartum: COMMENT: pt states was never vaccinated for anything in her life Charges/Coding Multi Select Codes Urinary/Genital Urinary/Genital CPT Codes: No Charge
[2025-02-26 10:45] LABS: Hematocrit 33.1 % (37-47); Hemoglobin 11.3 g/dL (12.0-15.0); Immature Granulocytes Count 0.080 X10^3/uL (0.0-0.0); Mean Corp Hgb Conc 34.1 g/dL (32-36); Mean Corpuscular Volume 84.9 fL (81-99); Mean Platelet Vol. 11.2 fl (6.2-12.0); NRBC Flagged by Analyzer 0 % (0-5); Platelet Count 217 K/mm3 (150-450); RBC Distribution Width CV 14.3 % (11.6-14.6); RBC Distribution Width SD 44.4 fl (35.1-43.9); Red Blood Count 3.90 M/mm3 (4.2-5.4); White Blood Count 12.7 K/mm3 (4.4-11.0)
[2025-02-26 11:31] LABS: Syphilis Antibodies Nonreactive (Nonreactive)
[2025-02-26] MEDS: Penicillin G Pot 5,000,000 UNITS in 0.9% Normal Saline (100mL MB+) 100 ML 150 UNITS IV (11:50)
[2025-02-26] MEDS: Lactated Ringers 1,000 ML 50 ML IV (11:50)
--- NOTE | 2025-02-26 16:07 | PCM.PN.BLA ---
Progress Note Coping well with contractions current tracing: FHT: 130 Moderate variability reactive no decelerations category I tracing [place]: 2-5 minute Contractions Membranes:mec fluid SVE:3/70/-1 A/P: Continue with position changes Start pitocin per protocol Epidural per anesthesia PCN for GBS prophylaxis Anticipate Dr Martinez aware of above assessment and agrees with plan of care Assessment & Plan Assessment/Plan (1) Active labor: (2) GBS (group B streptococcus) UTI complicating : QUALIFIERS: Trimester: third trimester Qualified Code(s): O23.43 - Unspecified infection of urinary tract in , third trimester; B95.1 - Streptococcus, group B, as the cause of diseases classified elsewhere (3) Supervision of other normal : (4) : QUALIFIERS: Weeks of gestation: 39 weeks Qualified Code(s): Z3A.39 - 39 weeks gestation of (5) S/P appendectomy: (6) Rubella non-immune status, antepartum: Multi Select Codes Urinary/Genital Urinary/Genital CPT Codes: No Charge
[2025-02-26] MEDS: Penicillin G 3,000,000 Units 50 ML 100 UNITS IV (16:15)
--- NOTE | 2025-02-26 17:58 | PCM.PN.BLA ---
Progress Note Coping well with contractions current tracing: FHT: 135 Moderate variability reactive no decelerations category I tracing [place]: 3-5 minutes Contractions Membranes:moderate mec SVE:3.5/80/-1 A/P: Continue with position changes Titrate pitocin per protocol Epidural per anesthesia PCN for GBS prophylaxis Anticipate Dr Martinez aware of above assessment and agrees with plan of care Assessment & Plan Assessment/Plan (1) Active labor: (2) GBS (group B streptococcus) UTI complicating : QUALIFIERS: Trimester: third trimester Qualified Code(s): O23.43 - Unspecified infection of urinary tract in , third trimester; B95.1 - Streptococcus, group B, as the cause of diseases classified elsewhere (3) Supervision of other normal : (4) : QUALIFIERS: Weeks of gestation: 39 weeks Qualified Code(s): Z3A.39 - 39 weeks gestation of (5) S/P appendectomy: (6) Rubella non-immune status, antepartum: Multi Select Codes Urinary/Genital Urinary/Genital CPT Codes: No Charge
--- NOTE | 2025-02-26 19:08 | PCM.PN.BLA ---
Progress Note Coping well with contractions current tracing: FHT: 130 Moderate variability reactive no decelerations category I tracing [place]: 2-4 minute Contractions Membranes:heavy meconium SVE:6//-1 A/P: Continue with position changes Epidural per anesthesia PCN for GBS prophylaxis Anticipate Dr Martinez aware of above assessment and agrees with plan of care Assessment & Plan Assessment/Plan (1) Active labor: (2) GBS (group B streptococcus) UTI complicating : QUALIFIERS: Trimester: third trimester Qualified Code(s): O23.43 - Unspecified infection of urinary tract in , third trimester; B95.1 - Streptococcus, group B, as the cause of diseases classified elsewhere (3) Supervision of other normal : (4) : QUALIFIERS: Weeks of gestation: 39 weeks Qualified Code(s): Z3A.39 - 39 weeks gestation of (5) S/P appendectomy: (6) Rubella non-immune status, antepartum: Multi Select Codes Urinary/Genital Urinary/Genital CPT Codes: No Charge
[2025-02-26] MEDS: Oxytocin 15 Units/NS 250ml 15 UNITS/250 ML IV.SOLN 334 UNITS IV (20:01)
--- NOTE | 2025-02-26 20:09 | OB.VAGDELI_ITS ---
Assessment & Plan (1) Vaginal delivery: COMMENT: KW SROM [place] (2) Active labor: (3) GBS (group B streptococcus) UTI complicating : QUALIFIERS: Trimester: third trimester Qualified Code(s): O23.43 - Unspecified infection of urinary tract in , third trimester; B95.1 - Streptococcus, group B, as the cause of diseases classified elsewhere COMMENT: not high enough to treat. treat in labor (4) Supervision of other normal : COMMENT: [id number], NIKOS 02/21/25, Sabi Guerrero. Tru (5) : QUALIFIERS: Weeks of gestation: 39 weeks Qualified Code(s): Z3A.39 - 39 weeks gestation of COMMENT: requests No Vit K inj for baby!!! anatomy nl, NIPT w gender & carrier- declines Choroid plexus cyst noted on US. pt aware and still declines NIPT (6) S/P appendectomy: COMMENT: Emergent surgery by Dr. Juárez at [facility]. 06/24/24 (7) Rubella non-immune status, antepartum: COMMENT: pt states was never vaccinated for anything in her life Maternal Data Information NIKOS Calculator Estimated Delivery Date Method Current WG Current Estimate 02/21/25 Ultrasound #1 40w 5d Other Estimates 02/15/25 LMP (Certain) 41w 4d Final NIKOS: 02/21/25 Final NIKOS Source: US >20 weeks Gestational age: 40.5 Doctor Who Attended Delivery: Rocio Pelletier Vaginal Delivery Maternal Presentation Maternal Presentation: Spontaneous Rupture of Membranes Maternal Presentation: Presented to unit for active labor with SROM for thick Meconium fluid Vaginal Delivery Information Procedure Performed: Spontaneous Vaginal Delivery Surgeon/Practitioner: Christiane Cortes Date of Procedure: 02/26/25 Pre-Procedure Diagnosis: see problem list Post-Procedure Diagnosis: same Type of anesthesia: None Estimated Blood Loss: 100 Time of Delivery: 19:56 Findings Description of procedure: Progressed well to 10cm dilated and made steady progress with effective maternal pushing. Delivered the head in NHI presentation. The head was delivered atraumatically and no nuchal cord was identified. The anterior and posterior shoulders delivered without complication followed by the rest of the and the was placed on the maternal abdomen. Delayed cord clamping was employed for approximately 2 minutes. Cord was clamped and cut and gentle traction was applied to the cord and the placenta delivered spontaneously. Immediately following, it was noted to be intact with a 3 vessel cord. Uterine bleeding stable. The perineum and vagina were inspected and noted to have a first degree abrasion which was not bleeding. Approx 1 cm along left side of perineum. Patient requested it not be repaired if not bleeding. Will not affect structural integrity-decision made to not repair per her request. EBL was 100. Patient and infant tolerated delivery well. Apgars 7/8. Dr Beck notified of vaginal delivery and orders reviewed. Physician agrees with current plan of care. Presentation: Vertex Amniotic Membrane Rupture Type: Spontaneous Amniotic Fluid Description: Thick meconium Placental Delivery Description: Spontaneous Placenta Disposition: [facility] Specimen collected: No Cord Vessel Description: 3 Vessels Cord Entanglement: None A Gender: Male (1 minute): 7 (5 minute): 8 Delayed Cord Clamping: Yes Nitroglycerin Supervisor tier lift operator: No Post Vaginal Deli Medications given after delivery: IV Pitocin Episiotomy Description: None Laceration: 1st degree Complication Complications: No Multi Select Codes Urinary/Genital Urinary/Genital CPT Codes: 56045 Vaginal Delivery [facility]
--- NOTE | 2025-02-26 20:14 | DCINST_ITS ---
Discharge Instructions DC O2, CPAP, BIPAP needs Home O2 Discharge instructions: No Dressing / Incision Discharge Activity: Return to Normal Activity May resume sexual activity in: 6-8 weeks Dressing / Incision Call your doctor if you observe: Fever of 101 or Higher, Coldness, Increased Pain, Numbness or Tingling, Change in Color, Inability to urinate, Inability to have a bowel movement, Using more than 1 pad per hour, Shortness of breath, Dizziness, Fainting spells, Swelling in the ankles, Chest pain, Increased palpitations (irregular heartbeat), Calf discomfort and Uncontrolled pain Follow Up Care Please Follow Up With: Christiane Cortes CNM When: Please call the office to schedule your follow up appointment in 6 weeks. If you had high blood pressure please call to schedule an appointment in 2 weeks. Test Results: Test results from this visit will be discussed in further detail at your follow- up appointment, if applicable. Discharge Plan Admission Admit Date/Time: 02/26/25 08:52 Attending Provider: Christiane Cortes Primary Care Provider: Care Physician,Doris Primary Discharge Orders/Prescriptions Prescriptions: No Action Helga PNV 6 mg iron- 833.5 mcg DFE tablet 1 tab PO DAILY EZFE 200 200 mg iron capsule 200 mg PO QDAY ondansetron 4 mg tablet,disintegrating 4 mg PO Q4H PRN (Reason: nausea and vomiting) Qty: 60 2RF Referrals / Follow Up: Care Physician,No Primary [Primary Care Provider, Medical]
[2025-02-26] MEDS: Oxytocin 15 Units/NS 250ml 15 UNITS/250 ML IV.SOLN 83 UNITS IV (21:28)
[2025-02-26] MEDS: SELF ADMINISTRATION OF MEDS 1 EACH NOTE (22:30)
[2025-02-27 02:48] VITALS: BP 113/62; PULSE 98; RESP 16; TEMP 36.9
--- NOTE | 2025-02-27 07:39 | PN.OBGYN_ITS ---
Subjective Subjective Patient doing well without complaints. Tolerating PO. Ambulating and voiding without difficulty. Feeding well. Denies chest pain, shortness of breath, calf pain/swelling, fevers, chills, lightheadedness. Objective Data Objective Data Vital Signs: Vital Signs Temp Pulse Resp BP Pulse Ox O2 Del Method 98.5 F 98 16 113/62 98 Room Air 02/27/25 02:48 02/27/25 02:48 02/27/25 02:48 02/27/25 02:48 02/26/25 16:25 02/27/25 02:48 Oxygen Delivery Method Room Air Weight: 248 lb 8 oz Body Mass Index (BMI) 36.6 Intake & Output: Intake and Output for Last 24 Hours 02/25/25 02/26/25 02/27/25 23:59 23:59 23:59 Intake Total 483.33 / 483.33 250 / 250 Output Total 650 / 650 300 / 300 Balance -166.67 / -166.67 -50 / -50 Lab / Micro Data 02/26/25 10:20 Labs: Laboratory Results - last 24 hr 02/26/25 10:20: WBC 12.7 H, RBC 3.90 L, Hgb 11.3 L, Hct 33.1 L, MCV 84.9, MCH 29.0, MCHC 34.1, RDW Std Deviation 44.4 H, RDW Coeff of Mimi 14.3, Plt Count 217, MPV 11.2, Immature Gran % (Auto) 0.600, Neut % (Auto) 80.3 H, Lymph % (Auto) 11.6 L, [place] % (Auto) 6.4, Eos % (Auto) 0.9, Baso % (Auto) 0.2, Absolute Neuts (auto) 10.2 H, Absolute Lymphs (auto) 1.47, Nucleated RBC % 0, Syphilis Total Ab Nonreactive, Blood Type A POSITIVE, Antibody Screen NEGATIVE ROS Constitutional Constitutional: Reports systems reviewed and no addt'l complaints, except as documented Cardiovascular Cardiovascular: Reports as per HPI Respiratory/Chest Respiratory/Chest: Reports as per HPI Genitourinary Genitourinary: Reports as per HPI Physical Exam Const alert and oriented x3 General Appearance: cooperative HEENT normocephalic Eyes PERRL Neck full ROM Resp normal respiratory effort GI soft to palpation GI Narrative: FF below U Assessment & Plan (1) Vaginal delivery: COMMENT: KW SROM [place] (2) Rubella non-immune status, antepartum: COMMENT: pt states was never vaccinated for anything in her life PLAN: Plan s/p PPD # 1 1. routine post delivery care 2. breast feeding- support given 3. rh positive 4. rubella nonimmune 5. home today
[2025-02-27 08:57] VITALS: BP 126/76; PULSE 103; RESP 20; TEMP 36.4
[2025-02-27 12:00] VITALS: BP 114/89; PULSE 96; RESP 16; TEMP 36.6
[2025-02-27 17:00] VITALS: BP 113/69; PULSE 93; RESP 16; TEMP 36.6
[2025-02-27 19:46] VITALS: BP 125/74; PULSE 96; RESP 16; TEMP 36.6; O2SAT 96
== END 2025-02-27 21:15 | disposition home or self-care (01) | DRG 806 ==
PROVIDERS: Admitting Provider Advanced Practice Midwife; Visit Provider Advanced Practice Midwife
DX: O42.92 Full-term premature rupture of membranes, unspecified as to length of time between rupture and onset of labor (principal); Z37.0 Single live birth; O98.82 Other maternal infectious and parasitic diseases complicating childbirth; O77.0 Labor and delivery complicated by meconium in amniotic fluid; B95.1 Streptococcus, group B, as the cause of diseases classified elsewhere; O70.0 First degree perineal laceration during delivery; Z3A.40 40 weeks gestation of pregnancy; Z87.440 Personal history of urinary (tract) infections; Z28.39 Other underimmunization status
CPT/HCPCS: 59025; 59050; 85025; 86780; 86850; 86900; 86901; 99221; A4216; G0378